=== PATIENT | female | born 1975 | race Caucasian/White ===

== ENCOUNTER 2016-09-21 15:17 | Emergency (ER) | payer MEDICAID, OTHER ==
[2016-09-21 15:34] VITALS: O2SAT 98
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
[2016-09-21 17:58] VITALS: BP 142/80; PULSE 100
[2016-09-21] MEDS ORDERED: TORAdol 30 mg Injection IM ONE ×2 (18:10→18:12)
[2016-09-21] MEDS ORDERED: TORAdol 30 mg Injection ONE (18:16)
--- NOTE | 2016-09-21 22:47 | XRAY ---
Indication: Pain, pressure, and erythema. Status post ORIF surgery. Comparison: None at our institution. AP/crosstable lateral right lower leg demonstrates intact intramedullary jerrica and proximal/distal screws fixating healing comminuted tibial shaft fracture with good apposition/alignment and mild soft tissue swelling. Also minimally displaced fibular shaft fracture with minimal healing. Multiple cutaneous jm attest to recent surgery. Mild ankle degenerative changes. No other bony, articular, or soft tissue abnormalities.
--- NOTE | 2016-09-21 22:50 | XRAY ---
Indication: Pain. Two-dimensional sonogram and color Doppler imaging of the major venous vessels of the right leg was performed. Comparison: None No thrombus seen in the examined deep venous vessels of the right leg including greater saphenous vein. Veins demonstrate normal compressibility. Venous waveforms are normal with and without augmentation. Impression: Right leg negative for DVT. Comment: Preliminary report was given.
== END 2016-09-21 18:33 | disposition home or self-care (01) ==
LOC: ED 15:17
DX: G89.18 Other acute postprocedural pain (principal); M25.561 Pain in right knee; M79.661 Pain in right lower leg
CPT/HCPCS: 73590; 84703; 93971; 96372; 99284; J1885

== ENCOUNTER 2017-05-26 21:41 | Emergency (ER) | payer OTHER ==
[2017-05-26] MEDS ORDERED: THORAZINE 50 MG*** 50 MG in Sodium Chloride 0.9% 100 ML IVPB 100 ML IV ONE (21:49)
[2017-05-26] MEDS ORDERED: THORAZINE 50 MG ONE ×2 (21:52→22:42)
[2017-05-26] MEDS ORDERED: Sodium Chloride 0.9% 1000 ML 1,000 ML ONE (21:52)
[2017-05-26] MEDS ORDERED: Sodium Chloride 0.9% 100 ML IVPB 0 ML IV ONE (21:53)
[2017-05-26] MEDS: THORAZINE 50 MG IM SCH ×2 (21:57→22:44)
[2017-05-26] MEDS ORDERED: Sodium Chloride 0.9% 1000 ML 1,000 ML IV SCH (22:00)
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
[2017-05-26 22:26] LABS: BASOPHIL % 0.4 % (0.0-0.4); Eosinophil % 1.2 % (0.00-5.0); Granulocytes % 69.4 % (36.0-66.0); Mean Cell Volume 83.6 fl (78-100); Mean Platelet Volume 9.9 fl (6-9.5); Platelet Count 451 K/mm3 (150-450); Red Blood Count 4.03 M/mm3 (4.1-5.4); Red Cell Distribution Width 17.6 % (11.5-14.0); White Blood Count 9.8 K/mm3 (4.0-10.5)
[2017-05-26 22:27] LABS: Mean Corpuscular Hemoglobin 26.7 pg (26-32)
[2017-05-26] MEDS ORDERED: THORAZINE 50 MG IM SCH (22:45)
[2017-05-26 22:47] LABS: ALBUMIN 3.6 g/dL (3.4-5.0); ALKALINE PHOSPHATASE 112 U/L (46-116); ANION GAP 14.6 MEQ/L (5-15); BLOOD UREA NITROGEN 8 mg/dL (9-20); CHLORIDE 106 mEq/L (98-107); Carbon Dioxide 24.5 mEq/L (21-32); Glucose 94 MG/DL (70-110); SGOT/AST 20 U/L (15-37); SGPT/ALT 19 U/L (12-78); SODIUM 141 mEq/L (136-145); Total Protein 7.4 gm/dL (6.4-8.2)
[2017-05-26 22:50] LABS: ACETAMINOPHEN < 2.0 ug/ml (10-30); ETHYL ALCOHOL < 0.010 % (0.00-0.01); Potassium 3.8 mEq/L (3.5-5.1)
[2017-05-26 22:55] LABS: Bacteria FEW /HPF (NEGATIVE); Bilirubin NEGATIVE (NEGATIVE); Blood 250 Ery/ul (0-5); COMPLETE URINE MICROSCOPIC? YES; Collection Type VOID; Epithelial Cells MODERATE /HPF (FEW); Glucose NEGATIVE (NEGATIVE); Leukocyte Esterase 1+ (NEGATIVE)
[2017-05-26 22:56] LABS: Trichomonas PRESENT /HPF (NEGATIVE)
[2017-05-26 23:00] LABS: ADD URINE CULTURE? YES (NO)
[2017-05-26] MEDS ORDERED: Flagyl 500 MG PO ONE (23:36)
[2017-05-26] MEDS ORDERED: Flagyl 500 MG ONE (23:38)
[2017-05-27 00:02] VITALS: BP 162/105; PULSE 124; O2SAT 100
--- NOTE | 2017-05-27 08:46 | XRAY ---
Indication: Short of breath. Comparison: None Portable chest moderately underinflated crowding the lung bases. No focal infiltrate, consolidation, or large effusion. Heart is not enlarged. Bony thorax intact. Impression: Nonacute underinflated chest.
== END 2017-05-27 00:06 | disposition home or self-care (01) ==
LOC: ED 21:41
DX: A59.03 Trichomonal cystitis and urethritis (principal); R06.00 Dyspnea, unspecified; F15.90 Other stimulant use, unspecified, uncomplicated
CPT/HCPCS: 36000; 36415; 71010; 80053; 80307; 81000; 82150; 83690; 83735; 83880; 84484; 84703; 85025; 87086; 93005; 96360; 96361; 96372; 99284; G0481; J3230; A9270-GY

== ENCOUNTER 2022-10-12 13:00 | Inpatient (IN) | payer MEDICARE ==
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
[2022-10-12] MEDS ORDERED: MORPHINE SULFATE 4 MG INJ IV ONE ×2 (13:16→15:12)
[2022-10-12] MEDS ORDERED: Zofran 4 MG/2 ML VIAL IV ONE (13:16)
[2022-10-12] MEDS ORDERED: BABY ASPIRIN 81 MG CHEW PO ONE (13:16)
[2022-10-12] MEDS ORDERED: MORPHINE SULFATE 4 MG INJ ONE ×2 (13:19→15:17)
[2022-10-12] MEDS ORDERED: Zofran 4 MG/2 ML VIAL ONE (13:19)
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
[2022-10-12 14:14] LABS: Absolute Neutrophil Ct (ANC) 11.03 x10^3/uL (1.4-6.9); BASOPHIL % 0.6 % (0.0-0.4); Basophil (Absolute #) 0.09 x10^3/uL (0-0.4); Eosinophil % 2.8 % (0.00-5.0); Eosinophil (Absolute #) 0.45 x10^3/uL (0-0.5); Hematocrit 42.9 % (35-47); Hemoglobin 12.6 g/dL (12.0-16.0); IMMATURE GRAN # 0.05 x10^3u/L (0.00-0.03); IMMATURE GRAN % 0.3 % (0.00-0.4); Lymphocyte (Absolute #) 3.12 x10^3/uL (1.0-4.6); Lymphocytes % 19.5 % (24.0-44.0); Mean Cell Volume 87.9 fL (78-100); Mean Corpuscular Hemoglobin 25.8 pg (26-32); Mean Corpuscular Hgb Concent. 29.4 g/dL (32-36); Mean Platelet Volume 9.9 fL (7.5-11.0); Monocyte (Absolute #) 1.24 x10^3/uL (0.0-1.3); Monocytes % 7.8 % (0.0-12.0); Platelet Count 382 x10^3/uL (150-450); Red Blood Count 4.88 x10^6/uL (4.1-5.4); Red Cell Distribution Width 17.3 % (11.5-14.0)
[2022-10-12 14:16] LABS: INFLUENZA A NEGATIVE (NEGATIVE); INFLUENZA B NEGATIVE (NEGATIVE); RESPIRATORY SYNCTIAL VIRUS NEGATIVE (NEGATIVE); SARS-CoV-2 Xpert Express NEGATIVE (NEGATIVE)
[2022-10-12] MEDS ORDERED: ROCEPHIN 1 Gm-D5w 50 ml Bag** 1 G/50 ML IVPB IV STA (14:24)
[2022-10-12] MEDS ORDERED: ROCEPHIN 1 Gm-D5w 50 ml Bag** 1 G/50 ML IVPB IV ONE (14:29)
[2022-10-12 14:39] LABS: ALBUMIN 3.8 g/dL (3.5-5.0); ALKALINE PHOSPHATASE 145 U/L (38-126); ANION GAP 15.7 MEQ/L (5-15); BLOOD UREA NITROGEN 10 mg/dL (7-17); CHLORIDE 107 mmol/L (98-107); Calcium 8.3 mg/dL (8.4-10.2); Carbon Dioxide 19 mmol/L (22-30); Creatinine 1 0.78 mg/dL (0.52-1.04); EST GLOMERULAR FILTRATION RATE > 60.0 ML/MIN; Glucose 110 mg/dL (74-106); NT PRO BNPII 2090 pg/mL (<300); Potassium 4.2 mmol/L (3.5-5.1); SGOT/AST 23 U/L (14-36); SGPT/ALT 17 U/L (0-35); SODIUM 137 mmol/L (137-145); Total Protein 7.2 g/dL (6.3-8.2)
[2022-10-12] MEDS ORDERED: Sodium Chloride 0.9% 500 ML 500 ML IV ONE ×2 (14:54→15:04)
--- NOTE | 2022-10-12 16:20 | XRAY ---
Indication: Right chest pain with inspiration. Multiple contiguous axial images obtained through the chest using 100 cc Isovue 370 contrast and PE protocol. Comparison: None Good opacification of the pulmonary arteries. Small nonoccluding pulmonary emboli in the right main pulmonary artery extending into the main right lower lobe branch and posterior segmental branch. Additional occluding pulmonary emboli in the medial segment of the right lower lobe. Heart not enlarged. Aorta is normal in course and caliber. No pathologic mediastinal/hilar lymphadenopathy. Lungs demonstrates right lower and lesser degree right middle lobe subsegmental atelectasis. Also small focus groundglass airspace disease inferior right upper lobe with small right effusion. Incidental small left costophrenic angle calcified granuloma. Bony thorax intact with minimal degenerative changes throughout the spine. Limited upper abdomen demonstrates cholecystectomy and 1.6 cm hepatic hemangioma adjacent to the gallbladder fossa. Impression: 1. Occluding and nonoccluding pulmonary emboli in right main and right lower lobe pulmonary arteries as detailed. 2. Right middle and right lower lobe subsegmental atelectasis. 3. Right upper lobe groundglass airspace disease with small effusion. 4. Incidental hepatic hemangioma.
[2022-10-12] MEDS ORDERED: ENOXAPARIN SODIUM SQ ONE ×2 (16:39→16:45)
[2022-10-12] MEDS ORDERED: TYLENOL 325 MG PO PRN (17:17)
[2022-10-12] MEDS ORDERED: Zofran 4 MG/2 ML VIAL IV PRN (17:17)
[2022-10-12] MEDS: Sodium Chloride 0.9% 1000 ML 1,000 ML IV SCH (17:48)
[2022-10-12] MEDS: Zithromax 500 MG/ 250 ML NaCl Premix 500 MG/250 ML IVPB IV SCH (17:48)
[2022-10-12 18:26] LABS: INR 0.93 (0.8-3.0); PROTIME 10.2 SECONDS (9.4-12.5)
[2022-10-12] MEDS: SUBLIMAZE 100 MCG/2 ML IV PRN (18:37)
[2022-10-12] MEDS: Advair Hfa 115/21 Common canister IH SCH (19:00)
[2022-10-12] MEDS ORDERED: ENOXAPARIN SODIUM SQ SCH (22:00)
[2022-10-13] MEDS: SUBLIMAZE 100 MCG/2 ML IV PRN ×4 (01:34→18:17)
[2022-10-13] MEDS: NORCO 7.5/325 MG TAB PO PRN ×2 (03:53→23:19)
[2022-10-13 06:14] LABS: Absolute Neutrophil Ct (ANC) 7.61 x10^3/uL (1.4-6.9); BASOPHIL % 0.8 % (0.0-0.4); Basophil (Absolute #) 0.11 x10^3/uL (0-0.4); Hematocrit 37.4 % (35-47); Hemoglobin 11.8 g/dL (12.0-16.0); IMMATURE GRAN # 0.04 x10^3u/L (0.00-0.03); IMMATURE GRAN % 0.3 % (0.00-0.4); Lymphocyte (Absolute #) 3.95 x10^3/uL (1.0-4.6); Lymphocytes % 29.7 % (24.0-44.0); Mean Cell Volume 81.7 fL (78-100); Mean Corpuscular Hemoglobin 25.8 pg (26-32); Mean Corpuscular Hgb Concent. 31.6 g/dL (32-36); Monocyte (Absolute #) 1.18 x10^3/uL (0.0-1.3); Monocytes % 8.9 % (0.0-12.0); Neutrophil % 57.3 % (36.0-66.0); Platelet Count 391 x10^3/uL (150-450); Red Blood Count 4.58 x10^6/uL (4.1-5.4); Red Cell Distribution Width 17.2 % (11.5-14.0); White Blood Count 13.3 x10^3/uL (4.0-10.5)
[2022-10-13 06:48] LABS: ALBUMIN 3.5 g/dL (3.5-5.0); ALKALINE PHOSPHATASE 159 U/L (38-126); ANION GAP 11.8 MEQ/L (5-15); BLOOD UREA NITROGEN 9 mg/dL (7-17); CHLORIDE 109 mmol/L (98-107); Calcium 8.1 mg/dL (8.4-10.2); Carbon Dioxide 21 mmol/L (22-30); Creatinine 1 0.87 mg/dL (0.52-1.04); EST GLOMERULAR FILTRATION RATE > 60.0 ML/MIN; Glucose 99 mg/dL (74-106); NT PRO BNPII 1680 pg/mL (<300); Potassium 4.1 mmol/L (3.5-5.1); SGOT/AST 27 U/L (14-36); SGPT/ALT 20 U/L (0-35); SODIUM 138 mmol/L (137-145); Total Protein 6.7 g/dL (6.3-8.2)
[2022-10-13] MEDS ORDERED: SUBLIMAZE 100 MCG/2 ML ONE (06:59)
[2022-10-13] MEDS: ELIQUIS 2.5 MG TABLET PO SCH ×2 (09:35→21:26)
[2022-10-13] MEDS: ROCEPHIN 1 Gm-D5w 50 ml Bag** 1 G/50 ML IVPB IV SCH (09:36)
[2022-10-13] MEDS: Zithromax 500 MG/ 250 ML NaCl Premix 500 MG/250 ML IVPB IV SCH (09:36)
[2022-10-13] MEDS: Sodium Chloride 0.9% 1000 ML 1,000 ML IV SCH (17:43)
[2022-10-13] MEDS: Advair Hfa 230/21 Mcg COMMON CANISTER IH SCH (18:57)
[2022-10-13] MEDS: Advair Hfa 115/21 Common canister IH SCH (21:25)
[2022-10-14] MEDS: SUBLIMAZE 100 MCG/2 ML IV PRN ×5 (03:14→21:30)
[2022-10-14 05:48] LABS: Hematocrit 36.9 % (35-47); Hemoglobin 11.3 g/dL (12.0-16.0); Mean Cell Volume 83.1 fL (78-100); Mean Corpuscular Hemoglobin 25.5 pg (26-32); Mean Corpuscular Hgb Concent. 30.6 g/dL (32-36); Mean Platelet Volume 9.8 fL (7.5-11.0); Platelet Count 350 x10^3/uL (150-450); Red Blood Count 4.44 x10^6/uL (4.1-5.4); Red Cell Distribution Width 16.8 % (11.5-14.0); White Blood Count 13.2 x10^3/uL (4.0-10.5)
[2022-10-14 06:14] LABS: ANION GAP 14.1 MEQ/L (5-15); BLOOD UREA NITROGEN 8 mg/dL (7-17); CHLORIDE 109 mmol/L (98-107); Carbon Dioxide 18 mmol/L (22-30); Creatinine 1 0.67 mg/dL (0.52-1.04); EST GLOMERULAR FILTRATION RATE > 60.0 ML/MIN; Glucose 94 mg/dL (74-106); Potassium 4.3 mmol/L (3.5-5.1); SODIUM 137 mmol/L (137-145)
[2022-10-14] MEDS: Advair Hfa 230/21 Mcg COMMON CANISTER IH SCH ×2 (07:33→18:40)
[2022-10-14] MEDS: ROCEPHIN 1 Gm-D5w 50 ml Bag** 1 G/50 ML IVPB IV SCH (08:52)
[2022-10-14] MEDS: Zithromax 500 MG/ 250 ML NaCl Premix 500 MG/250 ML IVPB IV SCH (09:04)
[2022-10-14] MEDS: ELIQUIS 2.5 MG TABLET PO SCH ×2 (09:04→21:30)
[2022-10-14] MEDS: NORCO 7.5/325 MG TAB PO PRN ×2 (10:06→14:22)
[2022-10-14] MEDS: Sodium Chloride 0.9% 1000 ML 1,000 ML IV SCH ×2 (10:19→13:37)
[2022-10-14] MEDS: PIPERACILLIN/TAZOBACTAM 3.375 GM in Sodium Chloride 100ML MINI-BAG PLUS 100 ML IV SCH ×2 (11:07→17:22)
--- NOTE | 2022-10-14 12:09 | XRAY ---
CLINICAL HISTORY:Pneumonia, PE; COMPARISON:10/12/2022; TECHNIQUES:Frontal view of the chest; FINDINGS: Compared to prior study, interval progression in right sided pleural effusion and underlying pulmonary air space consolidation. Left lung field is clear. No left pleural effusion. Heart size is normal. Ossesous structures are interval unchanged. IMPRESSION: Interval progression in the disease process on right side manifested by interval progression in right sided pleural effusion and underlying pulmonary air space consolidation. Electronically Signed by: Laura Shore MD. ( 10/14/2022 08:33:48 LEATHER CARVER)
[2022-10-14] MEDS ORDERED: Zofran 4 MG/2 ML VIAL IV PRN (12:45)
[2022-10-15] MEDS: PIPERACILLIN/TAZOBACTAM 3.375 GM in Sodium Chloride 100ML MINI-BAG PLUS 100 ML IV SCH ×5 (00:08→23:55)
[2022-10-15] MEDS: NORCO 7.5/325 MG TAB PO PRN ×4 (00:12→23:54)
[2022-10-15] MEDS: SUBLIMAZE 100 MCG/2 ML IV PRN ×3 (03:11→19:13)
[2022-10-15 05:05] LABS: Hematocrit 38.2 % (35-47); Hemoglobin 11.9 g/dL (12.0-16.0); Mean Cell Volume 83.2 fL (78-100); Mean Corpuscular Hemoglobin 25.9 pg (26-32); Mean Corpuscular Hgb Concent. 31.2 g/dL (32-36); Mean Platelet Volume 9.9 fL (7.5-11.0); Platelet Count 392 x10^3/uL (150-450); Red Blood Count 4.59 x10^6/uL (4.1-5.4); Red Cell Distribution Width 17.5 % (11.5-14.0)
[2022-10-15 05:15] LABS: BLOOD UREA NITROGEN 12 mg/dL (7-17); CHLORIDE 108 mmol/L (98-107); Carbon Dioxide 21 mmol/L (22-30); Creatinine 1 0.72 mg/dL (0.52-1.04); EST GLOMERULAR FILTRATION RATE > 60.0 ML/MIN; Glucose 93 mg/dL (74-106); Potassium 4.4 mmol/L (3.5-5.1); SODIUM 138 mmol/L (137-145)
[2022-10-15] MEDS: Advair Hfa 230/21 Mcg COMMON CANISTER IH SCH ×2 (07:12→19:12)
--- NOTE | 2022-10-15 08:41 | XRAY ---
Indication: Pulmonary embolus. Pneumonia. Comparison: One day earlier Portable chest again demonstrates moderate right mid to lower lung infiltrate/atelectasis/effusion mildly improved. Remaining heart and left lung unremarkable.
[2022-10-15] MEDS: Sodium Chloride 0.9% 1000 ML 1,000 ML IV SCH (10:44)
[2022-10-15] MEDS: ELIQUIS 2.5 MG TABLET PO SCH ×2 (10:45→21:15)
--- NOTE | 2022-10-15 13:31 | PCM.NOTE ---
Date and Time: 10/15/22 1331 OBJECTIVE DATA Vital Signs: Vital Signs - 24 hr Temp Pulse Resp BP Pulse Ox 10/15/22 12:00 97.0 F 94 H 20 157/98 94 L 10/15/22 07:15 90 18 96 10/15/22 07:07 97.0 F 92 H 21 141/95 95 10/15/22 04:00 97.8 F 85 20 181/84 97 10/14/22 23:38 97.0 F 93 H 21 132/80 95 10/14/22 18:58 97.5 F 89 18 114/69 98 10/14/22 18:40 88 18 98 10/14/22 15:44 96.2 F 81 16 132/75 96 Pain Assessment - Last Documented Pain Intensity 3 Pain Scale Used 0-10 Pain Scale Intake and Output: Intake & Output 10/13/22 10/14/22 10/15/22 10/16/22 11:59 11:59 11:59 11:59 Intake Total 1945 2098 1020 Output Total 300 550 Balance 1645 1548 1020 Weight 124.8 kg 126.1 kg 127.2 kg Lab Results: Lab Results-Last 24 Hours 10/15/22 10/15/22 Range/Units 04:51 04:51 WBC 15.0 H (4.0-10.5) x10^3/uL RBC 4.59 (4.1-5.4) x10^6/uL Hgb 11.9 L (12.0-16.0) g/dL Hct 38.2 (35-47) % MCV 83.2 (78-100) fL MCH 25.9 L (26-32) pg MCHC 31.2 L (32-36) g/dL RDW 17.5 H (11.5-14.0) % Plt Count 392 (150-450) x10^3/uL MPV 9.9 (7.5-11.0) fL Sodium 138 (137-145) mmol/L Potassium 4.4 (3.5-5.1) mmol/L Chloride 108 H (98-107) mmol/L Carbon Dioxide 21 L (22-30) mmol/L Anion Gap 13.0 (5-15) MEQ/L BUN 12 (7-17) mg/dL Creatinine 0.72 (0.52-1.04) mg/dL Estimated GFR > 60.0 ML/MIN Glucose 93 (74-106) mg/dL Calcium 8.0 L (8.4-10.2) mg/dL Radiology Exams: Radiology Procedures Category Date Time Status CHEST 1 VIEW (PORTABLE) DAILY Exams 10/14/22 09:00 Completed CHEST 1 VIEW (PORTABLE) Routine Exams 10/15/22 08:00 Completed ECHO W/2D AND DOPPLER [US] Routine Exams 10/15/22 07:00 Taken Multi-Disciplinary Progress Notes: Multi-Disciplinary Progress Notes 10/15/22 08:34 Respiratory Note by Sangeetha Walter PT'S O2 SAT ON ROOM AIR WHILE SLEEPING WAS 83-86%. PT PLACED BACK ON 2LPM VIA NASAL CANNULA. O2 SAT INCREASED TO 94%. Initialized on 10/15/22 08:34 - END OF NOTE
[2022-10-16] MEDS: SUBLIMAZE 100 MCG/2 ML IV PRN ×3 (03:16→19:52)
[2022-10-16] MEDS: PIPERACILLIN/TAZOBACTAM 3.375 GM in Sodium Chloride 100ML MINI-BAG PLUS 100 ML IV SCH ×3 (05:23→17:13)
[2022-10-16] MEDS: Sodium Chloride 0.9% 1000 ML 1,000 ML IV SCH (06:18)
[2022-10-16 07:12] LABS: Hematocrit 41.5 % (35-47); Hemoglobin 12.5 g/dL (12.0-16.0); Mean Cell Volume 85.4 fL (78-100); Mean Corpuscular Hemoglobin 25.7 pg (26-32); Mean Corpuscular Hgb Concent. 30.1 g/dL (32-36); Mean Platelet Volume 10.4 fL (7.5-11.0); Platelet Count 430 x10^3/uL (150-450); Red Blood Count 4.86 x10^6/uL (4.1-5.4); Red Cell Distribution Width 17.1 % (11.5-14.0); White Blood Count 12.9 x10^3/uL (4.0-10.5)
[2022-10-16] MEDS: Advair Hfa 230/21 Mcg COMMON CANISTER IH SCH ×2 (07:35→19:34)
[2022-10-16] MEDS: ELIQUIS 2.5 MG TABLET PO SCH ×2 (11:19→20:55)
[2022-10-16] MEDS: NORCO 7.5/325 MG TAB PO PRN (11:19)
--- NOTE | 2022-10-16 13:56 | ECHO ---
DATE OF PROCEDURE: 10/15/2022 CLINICAL INFORMATION: Pulmonary emboli. The M-mode 2D, and Doppler echocardiogram including color flow Doppler shows the left ventricle is normal in size. There is no thrombus present. There is mild concentric left ventricular hypertrophy. There is normal contractility of the left ventricle. The ejection fraction is calculated to be 80%. The right ventricle is dilated. The right ventricular systolic function is significantly decreased. The aortic valve opens well. It is trileaflet. There is no aortic regurgitation. There is mitral valve leaflet thickening. There is moderate tricuspid regurgitation. The right ventricular systolic pressure is calculated to be 77 mm of [place]. The pulmonic valve is not well visualized. There is moderate pulmonic regurgitation. The aortic root is normal. There is no pericardial effusion present. IMPRESSION: 1) SEVERE PULMONARY HYPERTENSION. 2) MODERATE TRICUSPID REGURGITATION. 3) MODERATE PULMONIC REGURGITATION. 4) RIGHT VENTRICULAR DILATATION. 5) RIGHT VENTRICULAR SYSTOLIC DYSFUNCTION. 6) MODERATE PULMONIC REGURGITATION. 7) POSSIBLE IMPAIRED LEFT VENTRICULAR RELAXATION. 8) MILD LEFT VENTRICULAR HYPERTROPHY.
[2022-10-16 20:02] VITALS: BP 156/91; PULSE 71; O2SAT 98
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
--- NOTE | 2022-10-21 17:14 | PCM.DS ---
Discharge Summary Date of Admission: 10/12/22 17:10 Date of Discharge: 10/16/2022 Admitting Physician: ANNEMARIE ESTRADA Consults: Consults on Case 10/16/22 11:47 Consult Cardiology ROUTINE Primary Care Provider: IMTIAZ SCHULTZ Allergies Allergies latex Allergy (Verified 10/12/22 13:21) povidone-iodine [From Betadine] Allergy (Verified 10/12/22 13:21) soap [From Betadine] Allergy (Verified 10/12/22 13:21) Hospital Summary - Hospital Course Hospital Course: Pt. admitted for iv antibiotics and anticoagulation, pt. was improving but abruptly decided she needed to leave for social issues, pt. 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 - Vitals & Intake/Output Vital Signs: Vital Signs Temperature 96.6 F 10/16/22 20:00 Pulse Rate 71 10/16/22 20:00 Respiratory Rate 26 H 10/16/22 20:00 Blood Pressure 156/91 10/16/22 20:00 O2 Sat by Pulse Oximetry 98 10/16/22 20:00 - Lab Result Diagrams: 10/16/22 07:00 10/15/22 04:51 Micro Results-Entire Visit: Microbiology 10/12/22 14:02 Blood Culture - Final Blood NO GROWTH 10/12/22 13:30 Blood Culture - Final Blood NO GROWTH - Procedures and Test Procedures and Tests throughout Hospitalization: Therapy Orders & Screens 10/12/22 17:17 EKG REPEAT IN AM Comment: Respiratory Therapy Consult ROUTINE Comment: Reason For Exam: 10/12/22 17:46 Oxygen Nasal Cannula 2 lpm Comment: Respiratory Therapy Assessment DAILY Comment: 10/12/22 18:56 Respiratory MDI BID Comment: Diagnosis: Pulmonary embolism 10/13/22 08:57 Respiratory Therapy Assessment DAILY Comment: wean O2 as tolerated Diagnosis: Pulmonary embolism 10/13/22 19:27 Respiratory MDI BID Comment: Diagnosis: Pulmonary embolism Discharge Exam General Appearance: no apparent distress, alert Neurologic Exam: alert, oriented x 3, cooperative, normal mood/affect, nml cerebellar function, sensation nml, No motor deficits Eye Exam: PERRL, EOMI, eyes nml inspection Ears, Nose, Throat Exam: normal ENT inspection, pharynx normal, moist mucous membranes Neck Exam: normal inspection, non-tender, supple, full range of motion Respiratory Exam: normal breath sounds, lungs clear, No respiratory distress Cardiovascular Exam: regular rate/rhythm, normal heart sounds Gastrointestinal/Abdomen Exam: soft, No tenderness, No mass Pelvic Exam: deferred Rectal Exam: deferred Back Exam: normal inspection, normal range of motion, No CVA tenderness, No vertebral tenderness Extremity Exam: normal inspection, normal range of motion Skin Exam: normal color, warm, dry Final Diagnosis/Problem List - Final Discharge Diagnosis/Problem (1) Pulmonary emboli Status: Acute Code(s): I26.99 - OTHER PULMONARY EMBOLISM WITHOUT ACUTE COR PULMONALE (2) Right pulmonary infiltrate on CXR Status: Acute Code(s): R91.8 - OTHER NONSPECIFIC ABNORMAL FINDING OF LUNG FIELD - Discharge Discharge Date: 10/16/22 Disposition: Against Medical Advice Condition: Stable Prescriptions: No Action Non-Formulary Drug [Non-Formulary Bulk Item] 0 each IH DAILY Follow up with: IMTIAZ SCHULTZ [Primary Care Provider] -
== END 2022-10-16 21:00 | disposition left against medical advice (07) | DRG 176 ==
LOC: ED 13:00 → MED SURG 17:10 → UNDOADMOB 17:10 → OBSVTOIN 17:10 → INTOOBSV 10-14 09:52 → OBSVTOIN 10-14 09:52
PROVIDERS: ADMIT Family Medicine; ATTEND Family Medicine
DX: I26.99 Other pulmonary embolism without acute cor pulmonale (principal); R91.8 Other nonspecific abnormal finding of lung field; Z72.0 Tobacco use; Z79.899 Other long term (current) drug therapy
CPT/HCPCS: 0241U; 36000; 36415; 71045; 71046; 71260; 80048; 80053; 82947; 83880; 84484; 85025; 85027; 85379; 85610; 87040; 93005; 93041; 93268; 93306; 94640; 94760; 94762; 96365; 96372; 96374; 96375; 96376; 99285; 99291; G0378; J0456; J0696; J1650; J2270; J2405; J3010; A9270-GY

== ENCOUNTER 2023-06-22 05:29 | Observation (INO) | payer MEDICARE ==
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
[2023-06-22] MEDS ORDERED: DUONEB 0.5-3 MG/3 ml Neb IH ONE ×2 (06:39→07:35)
[2023-06-22] MEDS ORDERED: Sodium Chloride 0.9% 500 ML 500 ML IV SCH (07:15)
[2023-06-22 07:19] LABS: ALBUMIN 3.7 g/dL (3.5-5.0); ANION GAP 13.8 MEQ/L (5-15); Calcium 8.5 mg/dL (8.4-10.2); Creatinine 1 0.76 mg/dL (0.52-1.04); EST GLOMERULAR FILTRATION RATE 97.2 ML/MIN; MAGNESIUM 2.1 mg/dL (1.6-2.3); Potassium 4.4 mmol/L (3.5-5.1); Total Protein 7.3 g/dL (6.3-8.2)
--- NOTE | 2023-06-22 07:20 | XRAY ---
Indication: Cough and short of breath. Right chest pain. Comparison: October 15, 2022 Portable chest demonstrates clearing previous right lung pleural parenchymal opacities. Minimal residual versus recurrent right base infiltrate/atelectasis. Remaining heart, left lung, and bony thorax unremarkable.
[2023-06-22 07:31] LABS: TROPONIN < 0.012 ng/mL (0.000-0.034)
[2023-06-22 07:37] LABS: NT PRO BNPII 1790 pg/mL (<300)
[2023-06-22] MEDS ORDERED: Sodium Chloride 0.9% 1000 ML 1,000 ML ONE (07:42)
[2023-06-22 07:43] LABS: INFLUENZA A NEGATIVE (NEGATIVE); INFLUENZA B NEGATIVE (NEGATIVE); RESPIRATORY SYNCTIAL VIRUS NEGATIVE (NEGATIVE); SARS-CoV-2 Xpert Express NEGATIVE (NEGATIVE)
[2023-06-22] MEDS ORDERED: ROCEPHIN 1 Gm-D5w 50 ml Bag** 1 G/50 ML IVPB IV STA (07:43)
[2023-06-22] MEDS ORDERED: Rocephin 1000 MG INJ IM ONE (08:07)
[2023-06-22] MEDS ORDERED: XYLOCAINE 1% HCL 20 ML MDV ONE (08:10)
[2023-06-22] MEDS ORDERED: Rocephin 1000 MG INJ ONE (08:10)
[2023-06-22 08:59] LABS: Absolute Neutrophil Ct (ANC) 8.83 x10^3/uL (1.4-6.9); BASOPHIL % 0.5 % (0.0-0.4); Basophil (Absolute #) 0.08 x10^3/uL (0-0.4); Eosinophil % 1.1 % (0.00-5.0); Eosinophil (Absolute #) 0.16 x10^3/uL (0-0.5); Hematocrit 39.9 % (35-47); Hemoglobin 12.3 g/dL (12.0-16.0); IMMATURE GRAN # 0.05 x10^3u/L (0.00-0.03); IMMATURE GRAN % 0.3 % (0.00-0.4); Lymphocyte (Absolute #) 4.65 x10^3/uL (1.0-4.6); Lymphocytes % 30.9 % (24.0-44.0); Mean Cell Volume 77.6 fL (78-100); Mean Corpuscular Hemoglobin 23.9 pg (26-32); Mean Corpuscular Hgb Concent. 30.8 g/dL (32-36); Mean Platelet Volume 9.1 fL (7.5-11.0); Monocyte (Absolute #) 1.26 x10^3/uL (0.0-1.3); Monocytes % 8.4 % (0.0-12.0); NUCLEATED RBC # 0.04 x10^3u/L (0.00-0.01); NUCLEATED RBC % 0.3 % (0.00-0.1); Neutrophil % 58.8 % (36.0-66.0); Platelet Count 364 x10^3/uL (150-450); Red Blood Count 5.14 x10^6/uL (4.1-5.4); Red Cell Distribution Width 20.7 % (11.5-14.0)
[2023-06-22] MEDS ORDERED: MORPHINE SULFATE 4 MG INJ IM ONE (09:05)
[2023-06-22] MEDS ORDERED: TRANDATE 20 MG/4 ML SYRINGE IV ONE ×2 (09:10→11:48)
[2023-06-22] MEDS ORDERED: MORPHINE SULFATE 4 MG INJ ONE (09:15)
[2023-06-22] MEDS ORDERED: ENOXAPARIN SODIUM SQ ONE ×4 (09:45→22:00)
[2023-06-22] MEDS ORDERED: Sodium Chloride 0.9% 1000 ML 1,000 ML IV SCH (10:45)
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
--- NOTE | 2023-06-22 12:36 | XRAY ---
CLINICAL HISTORY:Right lower chest pain, cough COMPARISON:Dated 04/04/2023. TECHNIQUE:Contiguous axial CT images of the chest were acquired with the administration of intravenous contrast. Coronal and sagittal reconstructions were obtained. FINDINGS: Right lower lobe lobar and segmental pulmonary artery thromboembolism is noted. There is associating right lower lobe posterior segment parenchymal consolidation possibly due to infarct. The main pulmonary artery, intrahepatic cava and intrahepatic hepatic veins are prominent in size. Patchy air space shadowing is seen in the right lower lobe. Mild to moderate right-sided pleural effusion was seen. Ground glass haze was seen in both lungs. 6.3mm soft tissue density / solid nodule seen in left lower lobe. CT at 6-12 months is advised according to The Fleischner Society pulmonary nodule recommendations. Heart size is normal, and there is no pericardial effusion. No pathologically enlarged mediastinal, hilar or axillary lymph node was identified. There is no definite mass lesion in the chest wall. Multiple tiny calcific foci seen in the spleen are likely benign. Status post cholecystectomy. The rest of the scanned upper abdomen is unremarkable. Mild degenerative changes were seen in the visualized spine. IMPRESSION: 1. Right lower lobe possibly acute thromboembolism. 2. Patchy air space shadowing is seen in the right lower lobe possibly due to infarct.. 3. Mild to moderate right-sided pleural effusion was seen. 4. 6.3mm soft tissue density / solid nodule seen in left lower lobe. CT at 6-12 months is advised according to The Fleischner Society pulmonary nodule recommendations. [facility] was called at 11:26 AM CEREAL CHEMIST, 06/22/2023 on [phone] and findings were verbally communicated to Cornell Gudino. Electronically Signed by: Laura Shore MD. (06/22/2023 12:31:22 EST)
[2023-06-22] MEDS ORDERED: TYLENOL 325 MG PO PRN (13:06)
[2023-06-22] MEDS ORDERED: Nicoderm CQ 21 MG TOP SCH (13:15)
[2023-06-22] MEDS: Sodium Bicarbonate 50 MEQ/50 ML VIAL*** 150 MEQ in Dextrose 5%/Water IV Soln. 1000 ML 8... IV SCH ×2 (13:34→21:48)
[2023-06-22 14:50] LABS: TROPONIN < 0.012 ng/mL (0.000-0.034)
[2023-06-22] MEDS ORDERED: NORCO 5/325 MG PO PRN (15:26)
[2023-06-22] MEDS: MORPHINE SULFATE 2 MG INJ IV PRN ×2 (15:50→20:06)
[2023-06-22] MEDS: Zithromax 500 MG/ 250 ML NaCl Premix 500 MG/250 ML IVPB IV SCH (16:29)
[2023-06-22] MEDS ORDERED: Compazine 10 MG/2 ML IV PRN (17:16)
[2023-06-22 20:49] LABS: ADD URINE CULTURE? YES (NO); Appearance Cloudy (Clear); Bacteria Moderate /HPF (None Seen); Bilirubin Small (Negative); Blood Large (Negative); Epithelial Cells Moderate /HPF (None Seen); Glucose, Urine Negative (Negative); Hyaline Casts NONE SEEN /LPF (0-2); Ketones Negative (Negative); Leukocyte Esterase Small (Negative); Nitrite Negative (Negative); Ph 5.5 (4.6-8.0); Protein,Urine Dip 100 (Negative); RBC 21-50 /HPF (0-5); Specific Gravity >=1.030 (1.005-1.030); WBC 21-50 /HPF (0-5)
[2023-06-22] MEDS ORDERED: VENTOLIN COMMON CANISTER IH PRN (21:13)
[2023-06-23] MEDS: Sodium Bicarbonate 50 MEQ/50 ML VIAL*** 150 MEQ in Dextrose 5%/Water IV Soln. 1000 ML 8... IV SCH (04:16)
--- NOTE | 2023-06-23 05:21 | PCM.NOTE ---
Date and Time: 06/23/23 0519 Subjective Assessment: is a 48 year old female with a pmhx of HTN, PE (Eliquis d/cd in March 2023), every day smoker, and chronic back pain who presented to ED 06/22/23 with complaints of shortness of breath, right pleuritic pain with inspiration, dry cough, and light headedness for the past two days. Patient states current symptoms are similar to when she was diagnosed with a PE in September of 2022. She received 6 months of anti-coagulation which was discontinued in March 2023. On presentation patient was tachycardic, tachypneic, and hypertensive. CXR demonstrates right lung pleural parenchymal opacities. Minimal residual versus recurrent right base infiltrate/atelectasis. CT chest showing RLL PE, patchy air space shadowing possibly due to infact in the right lower lobe, mild to moderate right sided pleural effusion. 6.3mm soft tissue density/solid nodule EKG showing Sinus tachycardia, LAFB, no acute ischemic changes. Lab findings remarkable for leukocytosis with WBC at 15.0, DDimer elevated at 1.16, carbon dioxide at 15, and alk phos at 203, BNP at 1790. Respiratory panel negative. Patient given Ceftriaxone, lovenox, morphine, and duoneb. Plan for therapeutic lovenox tonight, then start on Eliquis tomorrow at 10mg bid dosing for 7 days, then Eliquis 5mg bid dosing thereafter. Patient advised she may have to be on long- term anticoagulation, advised follow up with hem/onc, as well as pulmonology. Will continue on the ceftriaxone as well as zithromax for now. 06/23: OBJECTIVE DATA Vital Signs: Vital Signs - 24 hr Temp Pulse Resp BP BP BP Pulse Ox 06/22/23 23:28 96.9 F 84 22 144/102 96 06/22/23 20:06 91 H 20 94 L 06/22/23 19:53 96.8 F 84 17 136/88 95 06/22/23 17:26 96.3 F 88 21 116/87 96 06/22/23 16:00 97.6 F 77 20 136/85 99 06/22/23 15:50 77 132/89 06/22/23 13:40 77 18 99 06/22/23 12:48 97.6 F 77 18 96/64 87 L 06/22/23 11:55 82 18 124/89 97 06/22/23 11:54 85 18 124/89 96 06/22/23 11:46 88 17 153/116 96 06/22/23 11:30 98 H 17 157/106 95 06/22/23 11:24 98 H 17 155/107 99 06/22/23 10:30 168/109 06/22/23 10:00 95 H 19 172/111 06/22/23 09:30 99 H 14 157/113 100 06/22/23 09:06 96 H 16 163/115 06/22/23 09:05 97 H 23 100 06/22/23 09:01 94 H 16 100 06/22/23 08:34 99 H 16 99 06/22/23 08:30 94 H 18 146/112 06/22/23 08:00 102 H 18 171/124 06/22/23 07:30 110 H 21 179/117 99 06/22/23 07:27 101 H 22 148/122 06/22/23 07:11 100 H 32 H 182/131 98 06/22/23 07:10 100 H 25 H 97 06/22/23 07:00 100 H 17 98 06/22/23 06:58 98 06/22/23 06:50 98 H 16 98 06/22/23 06:45 104 H 25 H 96 06/22/23 06:40 104 H 25 H 2 L 06/22/23 06:30 103 H 33 H 96 06/22/23 06:28 98 06/22/23 06:20 102 H 30 H 94 L 06/22/23 06:10 105 H 25 H 95 06/22/23 06:01 101 H 23 158/100 98 06/22/23 05:33 32 H 99 06/22/23 05:32 102 H 32 H 160/108 96 06/22/23 05:31 97.2 F 102 H 32 H 160/108 98 Pain Assessment - Last Documented Pain Intensity 0 Pain Scale Used 0-10 Pain Scale Intake and Output: Intake & Output 06/20/23 06/21/23 06/22/23 06/23/23 11:59 11:59 11:59 11:59 Intake Total 2084 Balance 2084 Weight 132 kg 132 kg Lab Results: Lab Results-Last 24 Hours 06/22/23 06/22/23 06/22/23 Range/Units 06:50 07:00 07:00 WBC (4.0-10.5) x10^3/uL RBC (4.1-5.4) x10^6/uL Hgb (12.0-16.0) g/dL Hct (35-47) % MCV (78-100) fL MCH (26-32) pg MCHC (32-36) g/dL RDW (11.5-14.0) % Plt Count (150-450) x10^3/uL MPV (7.5-11.0) fL Gran % (36.0-66.0) % Immature Gran % (Auto) (0.00-0.4) % Nucleat RBC Rel Count (0.00-0.1) % Eos # (Auto) (0-0.5) x10^3/uL Immature Gran # (Auto) (0.00-0.03) x10^3u/L Absolute Lymphs (auto) (1.0-4.6) x10^3/uL Absolute Monos (auto) (0.0-1.3) x10^3/uL Absolute Nucleated RBC (0.00-0.01) x10^3u/L Lymphocytes % (24.0-44.0) % Monocytes % (0.0-12.0) % Eosinophils % (0.00-5.0) % Basophils % (0.0-0.4) % Absolute Granulocytes (1.4-6.9) x10^3/uL Basophils # (0-0.4) x10^3/uL D-Dimer (0.0-0.50) mg/L Sodium 136 L (137-145) mmol/L Potassium 4.4 (3.5-5.1) mmol/L Chloride 112 H (98-107) mmol/L Carbon Dioxide 15 L* (22-30) mmol/L Anion Gap 13.8 (5-15) MEQ/L BUN 13 (7-17) mg/dL Creatinine 0.76 (0.52-1.04) mg/dL Estimated GFR 97.2 ML/MIN Glucose 93 (74-106) mg/dL POC Glucometer (74 to 106) mg/dL Hemoglobin A1c (4.5-6.0) % Lactic Acid (0.4-2.0) Calcium 8.5 (8.4-10.2) mg/dL Magnesium 2.1 (1.6-2.3) mg/dL Total Bilirubin 1.00 (0.2-1.3) mg/dL AST 30 (14-36) U/L ALT 17 (0-35) U/L Alkaline Phosphatase 203 H (38-126) U/L Troponin I < 0.012 (0.000-0.034) ng/mL NT-Pro-B Natriuret Pep 1790 (<300) pg/mL Serum Total Protein 7.3 (6.3-8.2) g/dL Albumin 3.7 (3.5-5.0) g/dL Procalcitonin (0.030-0.080) ng/mL Urine Color (Yellow) Urine Appearance (Clear) Urine pH (4.6-8.0) Ur Specific [place] (1.005-1.030) Urine Protein (Negative) Urine Glucose (UA) (Negative) mg/dL Urine Ketones (Negative) Urine Blood (Negative) Urine Nitrite (Negative) Urine Bilirubin (Negative) Urine Urobilinogen (0.2) mg/dL Ur Leukocyte Esterase (Negative) U Hyaline Cast (Auto) (0-2) /LPF Urine Microscopic RBC (0-5) /HPF Urine Microscopic WBC (0-5) /HPF Ur Epithelial Cells (None Seen) /HPF Urine Bacteria (None Seen) /HPF Urine Culture Reflexed (NO) Influenza Type A Ag NEGATIVE (NEGATIVE) Influenza Type B Ag NEGATIVE (NEGATIVE) RSV (PCR) NEGATIVE (NEGATIVE) SARS-CoV-2 (PCR) NEGATIVE (NEGATIVE) 06/22/23 06/22/23 06/22/23 Range/Units 08:45 08:45 10:40 WBC 15.0 H (4.0-10.5) x10^3/uL RBC 5.14 (4.1-5.4) x10^6/uL Hgb 12.3 (12.0-16.0) g/dL Hct 39.9 (35-47) % MCV 77.6 L (78-100) fL MCH 23.9 L (26-32) pg MCHC 30.8 L (32-36) g/dL RDW 20.7 H (11.5-14.0) % Plt Count 364 (150-450) x10^3/uL MPV 9.1 (7.5-11.0) fL Gran % 58.8 (36.0-66.0) % Immature Gran % (Auto) 0.3 (0.00-0.4) % Nucleat RBC Rel Count 0.3 H (0.00-0.1) % Eos # (Auto) 0.16 (0-0.5) x10^3/uL Immature Gran # (Auto) 0.05 H (0.00-0.03) x10^3u/L Absolute Lymphs (auto) 4.65 H (1.0-4.6) x10^3/uL Absolute Monos (auto) 1.26 (0.0-1.3) x10^3/uL Absolute Nucleated RBC 0.04 H (0.00-0.01) x10^3u/L Lymphocytes % 30.9 (24.0-44.0) % Monocytes % 8.4 (0.0-12.0) % Eosinophils % 1.1 (0.00-5.0) % Basophils % 0.5 (0.0-0.4) % Absolute Granulocytes 8.83 H (1.4-6.9) x10^3/uL Basophils # 0.08 (0-0.4) x10^3/uL D-Dimer 1.16 H* (0.0-0.50) mg/L Sodium (137-145) mmol/L Potassium (3.5-5.1) mmol/L Chloride (98-107) mmol/L Carbon Dioxide (22-30) mmol/L Anion Gap (5-15) MEQ/L BUN (7-17) mg/dL Creatinine (0.52-1.04) mg/dL Estimated GFR ML/MIN Glucose (74-106) mg/dL POC Glucometer (74 to 106) mg/dL Hemoglobin A1c (4.5-6.0) % Lactic Acid (0.4-2.0) Calcium (8.4-10.2) mg/dL Magnesium (1.6-2.3) mg/dL Total Bilirubin (0.2-1.3) mg/dL AST (14-36) U/L ALT (0-35) U/L Alkaline Phosphatase (38-126) U/L Troponin I < 0.012 (0.000-0.034) ng/mL NT-Pro-B Natriuret Pep (<300) pg/mL Serum Total Protein (6.3-8.2) g/dL Albumin (3.5-5.0) g/dL Procalcitonin (0.030-0.080) ng/mL Urine Color (Yellow) Urine Appearance (Clear) Urine pH (4.6-8.0) Ur Specific [place] (1.005-1.030) Urine Protein (Negative) Urine Glucose (UA) (Negative) mg/dL Urine Ketones (Negative) Urine Blood (Negative) Urine Nitrite (Negative) Urine Bilirubin (Negative) Urine Urobilinogen (0.2) mg/dL Ur Leukocyte Esterase (Negative) U Hyaline Cast (Auto) (0-2) /LPF Urine Microscopic RBC (0-5) /HPF Urine Microscopic WBC (0-5) /HPF Ur Epithelial Cells (None Seen) /HPF Urine Bacteria (None Seen) /HPF Urine Culture Reflexed (NO) Influenza Type A Ag (NEGATIVE) Influenza Type B Ag (NEGATIVE) RSV (PCR) (NEGATIVE) SARS-CoV-2 (PCR) (NEGATIVE) 06/22/23 06/22/23 06/22/23 Range/Units 13:25 14:15 16:00 WBC (4.0-10.5) x10^3/uL RBC (4.1-5.4) x10^6/uL Hgb (12.0-16.0) g/dL Hct (35-47) % MCV (78-100) fL MCH (26-32) pg MCHC (32-36) g/dL RDW (11.5-14.0) % Plt Count (150-450) x10^3/uL MPV (7.5-11.0) fL Gran % (36.0-66.0) % Immature Gran % (Auto) (0.00-0.4) % Nucleat RBC Rel Count (0.00-0.1) % Eos # (Auto) (0-0.5) x10^3/uL Immature Gran # (Auto) (0.00-0.03) x10^3u/L Absolute Lymphs (auto) (1.0-4.6) x10^3/uL Absolute Monos (auto) (0.0-1.3) x10^3/uL Absolute Nucleated RBC (0.00-0.01) x10^3u/L Lymphocytes % (24.0-44.0) % Monocytes % (0.0-12.0) % Eosinophils % (0.00-5.0) % Basophils % (0.0-0.4) % Absolute Granulocytes (1.4-6.9) x10^3/uL Basophils # (0-0.4) x10^3/uL D-Dimer (0.0-0.50) mg/L Sodium (137-145) mmol/L Potassium (3.5-5.1) mmol/L Chloride (98-107) mmol/L Carbon Dioxide (22-30) mmol/L Anion Gap (5-15) MEQ/L BUN (7-17) mg/dL Creatinine (0.52-1.04) mg/dL Estimated GFR ML/MIN Glucose (74-106) mg/dL POC Glucometer (74 to 106) mg/dL Hemoglobin A1c 6.22 H (4.5-6.0) % Lactic Acid 1.8 (0.4-2.0) Calcium (8.4-10.2) mg/dL Magnesium (1.6-2.3) mg/dL Total Bilirubin (0.2-1.3) mg/dL AST (14-36) U/L ALT (0-35) U/L Alkaline Phosphatase (38-126) U/L Troponin I < 0.012 (0.000-0.034) ng/mL NT-Pro-B Natriuret Pep (<300) pg/mL Serum Total Protein (6.3-8.2) g/dL Albumin (3.5-5.0) g/dL Procalcitonin 0.080 (0.030-0.080) ng/mL Urine Color (Yellow) Urine Appearance (Clear) Urine pH (4.6-8.0) Ur Specific [place] (1.005-1.030) Urine Protein (Negative) Urine Glucose (UA) (Negative) mg/dL Urine Ketones (Negative) Urine Blood (Negative) Urine Nitrite (Negative) Urine Bilirubin (Negative) Urine Urobilinogen (0.2) mg/dL Ur Leukocyte Esterase (Negative) U Hyaline Cast (Auto) (0-2) /LPF Urine Microscopic RBC (0-5) /HPF Urine Microscopic WBC (0-5) /HPF Ur Epithelial Cells (None Seen) /HPF Urine Bacteria (None Seen) /HPF Urine Culture Reflexed (NO) Influenza Type A Ag (NEGATIVE) Influenza Type B Ag (NEGATIVE) RSV (PCR) (NEGATIVE) SARS-CoV-2 (PCR) (NEGATIVE) 06/22/23 06/22/23 06/22/23 Range/Units 16:52 20:15 21:17 WBC (4.0-10.5) x10^3/uL RBC (4.1-5.4) x10^6/uL Hgb (12.0-16.0) g/dL Hct (35-47) % MCV (78-100) fL MCH (26-32) pg MCHC (32-36) g/dL RDW (11.5-14.0) % Plt Count (150-450) x10^3/uL MPV (7.5-11.0) fL Gran % (36.0-66.0) % Immature Gran % (Auto) (0.00-0.4) % Nucleat RBC Rel Count (0.00-0.1) % Eos # (Auto) (0-0.5) x10^3/uL Immature Gran # (Auto) (0.00-0.03) x10^3u/L Absolute Lymphs (auto) (1.0-4.6) x10^3/uL Absolute Monos (auto) (0.0-1.3) x10^3/uL Absolute Nucleated RBC (0.00-0.01) x10^3u/L Lymphocytes % (24.0-44.0) % Monocytes % (0.0-12.0) % Eosinophils % (0.00-5.0) % Basophils % (0.0-0.4) % Absolute Granulocytes (1.4-6.9) x10^3/uL Basophils # (0-0.4) x10^3/uL D-Dimer (0.0-0.50) mg/L Sodium (137-145) mmol/L Potassium (3.5-5.1) mmol/L Chloride (98-107) mmol/L Carbon Dioxide (22-30) mmol/L Anion Gap (5-15) MEQ/L BUN (7-17) mg/dL Creatinine (0.52-1.04) mg/dL Estimated GFR ML/MIN Glucose (74-106) mg/dL POC Glucometer 127 H 102 (74 to 106) mg/dL Hemoglobin A1c (4.5-6.0) % Lactic Acid (0.4-2.0) Calcium (8.4-10.2) mg/dL Magnesium (1.6-2.3) mg/dL Total Bilirubin (0.2-1.3) mg/dL AST (14-36) U/L ALT (0-35) U/L Alkaline Phosphatase (38-126) U/L Troponin I (0.000-0.034) ng/mL NT-Pro-B Natriuret Pep (<300) pg/mL Serum Total Protein (6.3-8.2) g/dL Albumin (3.5-5.0) g/dL Procalcitonin (0.030-0.080) ng/mL Urine Color Dark Yellow A (Yellow) Urine Appearance Cloudy A (Clear) Urine pH 5.5 (4.6-8.0) Ur Specific [place] >=1.030 A (1.005-1.030) Urine Protein 100 A (Negative) Urine Glucose (UA) Negative (Negative) mg/dL Urine Ketones Negative (Negative) Urine Blood Large A (Negative) Urine Nitrite Negative (Negative) Urine Bilirubin Small A (Negative) Urine Urobilinogen 1.0 A (0.2) mg/dL Ur Leukocyte Esterase Small A (Negative) U Hyaline Cast (Auto) NONE SEEN (0-2) /LPF Urine Microscopic RBC 21-50 A (0-5) /HPF Urine Microscopic WBC 21-50 A (0-5) /HPF Ur Epithelial Cells Moderate A (None Seen) /HPF Urine Bacteria Moderate A (None Seen) /HPF Urine Culture Reflexed YES (NO) Influenza Type A Ag (NEGATIVE) Influenza Type B Ag (NEGATIVE) RSV (PCR) (NEGATIVE) SARS-CoV-2 (PCR) (NEGATIVE) Radiology Exams: Radiology Procedures Category Date Time Status CHEST 1 VIEW (PORTABLE) Stat Exams 06/22/23 06:28 Completed CHEST WITH CONTRAST [CT] Stat Exams 06/22/23 07:03 Completed Assessment/Plan (1) Pulmonary emboli Current Visit: Yes Status: Acute Qualifiers: Pulmonary embolism type: single subsegmental (without acute cor pulmonale) Qualified Code(s): I26.93 - Single subsegmental pulmonary embolism without acute cor pulmonale Assessment & Plan: -Ddimer elevated -CT chest showing PE in RLL -previous h/o PE in September of 2022 on anticoagulation with Eliquis from 10/14- 04/15 -lovenox therapeutic dosing, received 80mg in ED, will add 40mg and give 120mg this evening -Eliquis 10mg BID to be initiated in the morning x 7 days, then 5mg bid there after. Advised heme/onc consult due to multiple PE's may need anticoag evaluation as OP -tele -ECHO when available -Venous duplex when available -EKG with no acute ischemic changes, trops initially wnl, repeat in a.m. Code(s): I26.99 - OTHER PULMONARY EMBOLISM WITHOUT ACUTE COR PULMONALE (2) Right lower lobe pulmonary infiltrate Current Visit: Yes Status: Acute Assessment & Plan: -Bcult pending -Supportive therapies with supplemental oxygen with spo2 goal > 92% -RT evaluation -lactic acid, procal -Resp viral panel negative -IS -Ceftriaxone/azithromycin -Lovenox therapeutic dosing for PE -CT chest with RLL PE, Patchy air space shadowing is seen in the right lower lobe possibly due to infarct.Mild to moderate right-sided pleural effusion was seen. A 6.3mm soft tissue density / solid nodule seen in left lower lobe. CT at 6-12 months is advised according to The Fleischner [employer] pulmonary nodule recommendations. Code(s): R91.8 - OTHER NONSPECIFIC ABNORMAL FINDING OF LUNG FIELD (3) Leukocytosis Current Visit: Yes Status: Acute Assessment & Plan: -Most likely secondary to pneumonia -Ceftriaxone/azithromycin Code(s): D72.829 - ELEVATED WHITE BLOOD CELL COUNT, UNSPECIFIED (4) Hypertension Current Visit: Yes Status: Acute Assessment & Plan: -Pt hypotensive when arriving to floor requiring fluid bolus, now stable -hydralazine prn Code(s): I10 - ESSENTIAL (PRIMARY) HYPERTENSION Code(s): I26.99 - OTHER PULMONARY EMBOLISM WITHOUT ACUTE COR PULMONALE (2) Right lower lobe pulmonary infiltrate Current Visit: Yes Status: Acute Code(s): R91.8 - OTHER NONSPECIFIC ABNORMAL FINDING OF LUNG FIELD (3) Leukocytosis Current Visit: Yes Status: Acute Code(s): D72.829 - ELEVATED WHITE BLOOD CELL COUNT, UNSPECIFIED (4) Hypertension Current Visit: Yes Status: Acute Code(s): I10 - ESSENTIAL (PRIMARY) HYPERTENSION (5) UTI (urinary tract infection) Current Visit: Yes Status: Acute Code(s): N39.0 - URINARY TRACT INFECTION, SITE NOT SPECIFIED
[2023-06-23] MEDS: MORPHINE SULFATE 2 MG INJ IV PRN (05:41)
[2023-06-23 05:57] LABS: Absolute Neutrophil Ct (ANC) 10.63 x10^3/uL (1.4-6.9); BASOPHIL % 0.7 % (0.0-0.4); Basophil (Absolute #) 0.12 x10^3/uL (0-0.4); Eosinophil % 0.8 % (0.00-5.0); Eosinophil (Absolute #) 0.15 x10^3/uL (0-0.5); Hematocrit 42.3 % (35-47); Hemoglobin 12.3 g/dL (12.0-16.0); IMMATURE GRAN # 0.08 x10^3u/L (0.00-0.03); IMMATURE GRAN % 0.5 % (0.00-0.4); Lymphocyte (Absolute #) 4.59 x10^3/uL (1.0-4.6); Mean Cell Volume 81.2 fL (78-100); Mean Corpuscular Hemoglobin 23.6 pg (26-32); Mean Corpuscular Hgb Concent. 29.1 g/dL (32-36); Mean Platelet Volume 9.6 fL (7.5-11.0); Monocytes % 11.9 % (0.0-12.0); NUCLEATED RBC # 0.18 x10^3u/L (0.00-0.01); Neutrophil % 60.1 % (36.0-66.0); Platelet Count 357 x10^3/uL (150-450); Red Blood Count 5.21 x10^6/uL (4.1-5.4); Red Cell Distribution Width 21.5 % (11.5-14.0); White Blood Count 17.7 x10^3/uL (4.0-10.5)
[2023-06-23 06:20] LABS: ALBUMIN 3.6 g/dL (3.5-5.0); ANION GAP 13.4 MEQ/L (5-15); BILIRUBIN,TOTAL 1.4 mg/dL (0.2-1.3); Calcium 8.3 mg/dL (8.4-10.2); Creatinine 1 0.69 mg/dL (0.52-1.04); EST GLOMERULAR FILTRATION RATE 107.7 ML/MIN; Potassium 4.2 mmol/L (3.5-5.1); Total Protein 7.2 g/dL (6.3-8.2)
[2023-06-23 06:34] LABS: Slide Review 1 YES
[2023-06-23] MEDS ORDERED: ROCEPHIN 1 Gm-D5w 50 ml Bag** 1 G/50 ML IVPB IV SCH (10:00)
[2023-06-23] MEDS ORDERED: ELIQUIS 2.5 MG TABLET PO SCH (10:00)
--- NOTE | 2023-06-23 10:00 | PCM.DS ---
Discharge Summary Date of Admission: 06/22/23 12:01 Date of Discharge: 06/23/23 Admitting Physician: RAYNA CROCKETT MD Primary Care Provider: MATTHEW NOVAK Allergies Allergies latex Allergy (Verified 06/22/23 05:42) povidone-iodine [From Betadine] Allergy (Verified 06/22/23 05:42) soap [From Betadine] Allergy (Verified 06/22/23 05:42) Hospital Summary - Hospital Course Hospital Course: is a 48 year old female with a pmhx of HTN, PE (Eliquis d/cd in March 2023), every day smoker, and chronic back pain who presented to ED 06/22/23 with complaints of shortness of breath, right pleuritic pain with inspiration, dry cough, and light headedness for the past two days. Patient states current symptoms are similar to when she was diagnosed with a PE in September of 2022. She received 6 months of anti-coagulation which was discontinued in March 2023. On presentation patient was tachycardic, tachypneic, and hypertensive. CXR demonstrates right lung pleural parenchymal opacities. Minimal residual versus recurrent right base infiltrate/atelectasis. CT chest showing RLL PE, patchy air space shadowing possibly due to infact in the right lower lobe, mild to moderate right sided pleural effusion. 6.3mm soft tissue density/solid nodule EKG showing Sinus tachycardia, LAFB, no acute ischemic changes. Lab findings remarkable for leukocytosis with WBC at 15.0, DDimer elevated at 1.16, carbon dioxide at 15, and alk phos at 203, BNP at 1790. Respiratory panel negative. Patient given Ceftriaxone, lovenox, morphine, and duoneb. Initial treatment with therapeutic lovenox then Eliquis at 10mg bid dosing for 7 days, then Eliquis 5mg bid dosing thereafter. Patient advised she may have to be on long-term anticoagulation, advised follow up with hem/onc with Dr. Chris Nicholas as Op, as well as pulmonology (she follows with Dr. Novak). UA also suspicious for UTI which could be contributing to her elevated WBC. Will continue on cepodoxime for 7 days. She will need home oxygen prior to discharge which we will set up for her. Patient advised of Eliquis dosing as she states she has home (unexpired eliquis), there will be Eliquis available at the pharmacy for the 5mg bid dosing. Patient verbalized understanding and requesting discharge. All questions and concerns addressed, patient cleared for discharge. Discharge Note New Diagnosis:PE UTI PNA New Medications: cepodoxime/eliquis/azith Follow Up: PCP/Pulm/Hematology (Yu) Results pending: Final urine culture Latest Assessment & Plan (1) Pulmonary emboli Current Visit: Yes Status: Acute Qualifiers: Pulmonary embolism type: single subsegmental (without acute cor pulmonale) Qualified Code(s): I26.93 - Single subsegmental pulmonary embolism without acute cor pulmonale Assessment & Plan: -Ddimer elevated -CT chest showing PE in RLL -previous h/o PE in September of 2022 on anticoagulation with Eliquis from 10/14- 04/15 -lovenox therapeutic dosing, received 80mg in ED, will add 40mg and give 120mg this evening -Eliquis 10mg BID to be initiated in the morning x 7 days, then 5mg bid there after. Advised heme/onc consult due to multiple PE's may need anticoag evaluation as OP -tele -ECHO when available -Venous duplex when available -EKG with no acute ischemic changes, trops initially wnl, repeat in a.m. Code(s): I26.99 - OTHER PULMONARY EMBOLISM WITHOUT ACUTE COR PULMONALE (2) Right lower lobe pulmonary infiltrate Current Visit: Yes Status: Acute Assessment & Plan: -Bcult pending -Supportive therapies with supplemental oxygen with spo2 goal > 92% -RT evaluation -lactic acid, procal -Resp viral panel negative -IS -Ceftriaxone/azithromycin -Lovenox therapeutic dosing for PE -CT chest with RLL PE, Patchy air space shadowing is seen in the right lower lobe possibly due to infarct.Mild to moderate right-sided pleural effusion was seen. A 6.3mm soft tissue density / solid nodule seen in left lower lobe. CT at 6-12 months is advised according to The Fleischner [employer] pulmonary nodule recommendations. Code(s): R91.8 - OTHER NONSPECIFIC ABNORMAL FINDING OF LUNG FIELD (3) Leukocytosis Current Visit: Yes Status: Acute Assessment & Plan: -Most likely secondary to pneumonia -Ceftriaxone/azithromycin Code(s): D72.829 - ELEVATED WHITE BLOOD CELL COUNT, UNSPECIFIED (4) Hypertension Current Visit: Yes Status: Acute Assessment & Plan: -Pt hypotensive when arriving to floor requiring fluid bolus, now stable -hydralazine prn Code(s): I10 - ESSENTIAL (PRIMARY) HYPERTENSION (5) UTI (urinary tract infection) -Culture pending, will send home on cepodoxime for 7 days, recheck with PCP I spent 35 minutes [id number] with the patient on the day of discharge performing discharge exam, discussing hospital stay and discharge instructions with patient and caregivers, preparation of discharge records, prescriptions & referral forms and addressing any questions/concerns the patient had as documented above. - Vitals & Intake/Output Vital Signs: Vital Signs Temperature 97.2 F 06/23/23 08:54 Pulse Rate 103 H 06/23/23 08:54 Respiratory Rate 16 06/23/23 08:54 Blood Pressure 138/99 06/23/23 08:54 O2 Sat by Pulse Oximetry 95 06/23/23 08:54 Intake & Output: Intake & Output 06/20/23 06/21/23 06/22/23 06/23/23 11:59 11:59 11:59 11:59 Intake Total 4202 Output Total 300 Balance 3902 Weight 132 kg 132 kg - Lab Result Diagrams: 06/23/23 05:40 06/23/23 05:40 Lab Results-Last 24 Hrs: Lab Results-Last 24 Hours 06/22/23 06/22/23 06/22/23 Range/Units 10:40 13:25 14:15 WBC (4.0-10.5) x10^3/uL RBC (4.1-5.4) x10^6/uL Hgb (12.0-16.0) g/dL Hct (35-47) % MCV (78-100) fL MCH (26-32) pg MCHC (32-36) g/dL RDW (11.5-14.0) % Plt Count (150-450) x10^3/uL MPV (7.5-11.0) fL Gran % (36.0-66.0) % Immature Gran % (Auto) (0.00-0.4) % Nucleat RBC Rel Count (0.00-0.1) % Eos # (Auto) (0-0.5) x10^3/uL Immature Gran # (Auto) (0.00-0.03) x10^3u/L Absolute Lymphs (auto) (1.0-4.6) x10^3/uL Absolute Monos (auto) (0.0-1.3) x10^3/uL Absolute Nucleated RBC (0.00-0.01) x10^3u/L Lymphocytes % (24.0-44.0) % Monocytes % (0.0-12.0) % Eosinophils % (0.00-5.0) % Basophils % (0.0-0.4) % Absolute Granulocytes (1.4-6.9) x10^3/uL Basophils # (0-0.4) x10^3/uL Sodium (137-145) mmol/L Potassium (3.5-5.1) mmol/L Chloride (98-107) mmol/L Carbon Dioxide (22-30) mmol/L Anion Gap (5-15) MEQ/L BUN (7-17) mg/dL Creatinine (0.52-1.04) mg/dL Estimated GFR ML/MIN Glucose (74-106) mg/dL POC Glucometer (74 to 106) mg/dL Hemoglobin A1c (4.5-6.0) % Lactic Acid 1.8 (0.4-2.0) Calcium (8.4-10.2) mg/dL Total Bilirubin (0.2-1.3) mg/dL AST (14-36) U/L ALT (0-35) U/L Alkaline Phosphatase (38-126) U/L Troponin I < 0.012 < 0.012 (0.000-0.034) ng/mL Serum Total Protein (6.3-8.2) g/dL Albumin (3.5-5.0) g/dL Procalcitonin 0.080 (0.030-0.080) ng/mL Urine Color (Yellow) Urine Appearance (Clear) Urine pH (4.6-8.0) Ur Specific [place] (1.005-1.030) Urine Protein (Negative) Urine Glucose (UA) (Negative) mg/dL Urine Ketones (Negative) Urine Blood (Negative) Urine Nitrite (Negative) Urine Bilirubin (Negative) Urine Urobilinogen (0.2) mg/dL Ur Leukocyte Esterase (Negative) U Hyaline Cast (Auto) (0-2) /LPF Urine Microscopic RBC (0-5) /HPF Urine Microscopic WBC (0-5) /HPF Ur Epithelial Cells (None Seen) /HPF Urine Bacteria (None Seen) /HPF Urine Culture Reflexed (NO) Slides for Path Review 06/22/23 06/22/23 06/22/23 Range/Units 16:00 16:52 20:15 WBC (4.0-10.5) x10^3/uL RBC (4.1-5.4) x10^6/uL Hgb (12.0-16.0) g/dL Hct (35-47) % MCV (78-100) fL MCH (26-32) pg MCHC (32-36) g/dL RDW (11.5-14.0) % Plt Count (150-450) x10^3/uL MPV (7.5-11.0) fL Gran % (36.0-66.0) % Immature Gran % (Auto) (0.00-0.4) % Nucleat RBC Rel Count (0.00-0.1) % Eos # (Auto) (0-0.5) x10^3/uL Immature Gran # (Auto) (0.00-0.03) x10^3u/L Absolute Lymphs (auto) (1.0-4.6) x10^3/uL Absolute Monos (auto) (0.0-1.3) x10^3/uL Absolute Nucleated RBC (0.00-0.01) x10^3u/L Lymphocytes % (24.0-44.0) % Monocytes % (0.0-12.0) % Eosinophils % (0.00-5.0) % Basophils % (0.0-0.4) % Absolute Granulocytes (1.4-6.9) x10^3/uL Basophils # (0-0.4) x10^3/uL Sodium (137-145) mmol/L Potassium (3.5-5.1) mmol/L Chloride (98-107) mmol/L Carbon Dioxide (22-30) mmol/L Anion Gap (5-15) MEQ/L BUN (7-17) mg/dL Creatinine (0.52-1.04) mg/dL Estimated GFR ML/MIN Glucose (74-106) mg/dL POC Glucometer 127 H (74 to 106) mg/dL Hemoglobin A1c 6.22 H (4.5-6.0) % Lactic Acid (0.4-2.0) Calcium (8.4-10.2) mg/dL Total Bilirubin (0.2-1.3) mg/dL AST (14-36) U/L ALT (0-35) U/L Alkaline Phosphatase (38-126) U/L Troponin I (0.000-0.034) ng/mL Serum Total Protein (6.3-8.2) g/dL Albumin (3.5-5.0) g/dL Procalcitonin (0.030-0.080) ng/mL Urine Color Dark Yellow A (Yellow) Urine Appearance Cloudy A (Clear) Urine pH 5.5 (4.6-8.0) Ur Specific [place] >=1.030 A (1.005-1.030) Urine Protein 100 A (Negative) Urine Glucose (UA) Negative (Negative) mg/dL Urine Ketones Negative (Negative) Urine Blood Large A (Negative) Urine Nitrite Negative (Negative) Urine Bilirubin Small A (Negative) Urine Urobilinogen 1.0 A (0.2) mg/dL Ur Leukocyte Esterase Small A (Negative) U Hyaline Cast (Auto) NONE SEEN (0-2) /LPF Urine Microscopic RBC 21-50 A (0-5) /HPF Urine Microscopic WBC 21-50 A (0-5) /HPF Ur Epithelial Cells Moderate A (None Seen) /HPF Urine Bacteria Moderate A (None Seen) /HPF Urine Culture Reflexed YES (NO) Slides for Path Review 06/22/23 06/23/23 06/23/23 Range/Units 21:17 05:40 05:40 WBC 17.7 H (4.0-10.5) x10^3/uL RBC 5.21 (4.1-5.4) x10^6/uL Hgb 12.3 (12.0-16.0) g/dL Hct 42.3 (35-47) % MCV 81.2 (78-100) fL MCH 23.6 L (26-32) pg MCHC 29.1 L (32-36) g/dL RDW 21.5 H (11.5-14.0) % Plt Count 357 (150-450) x10^3/uL MPV 9.6 (7.5-11.0) fL Gran % 60.1 (36.0-66.0) % Immature Gran % (Auto) 0.5 H (0.00-0.4) % Nucleat RBC Rel Count 1.0 H (0.00-0.1) % Eos # (Auto) 0.15 (0-0.5) x10^3/uL Immature Gran # (Auto) 0.08 H (0.00-0.03) x10^3u/L Absolute Lymphs (auto) 4.59 (1.0-4.6) x10^3/uL Absolute Monos (auto) 2.10 H (0.0-1.3) x10^3/uL Absolute Nucleated RBC 0.18 H (0.00-0.01) x10^3u/L Lymphocytes % 26.0 (24.0-44.0) % Monocytes % 11.9 (0.0-12.0) % Eosinophils % 0.8 (0.00-5.0) % Basophils % 0.7 (0.0-0.4) % Absolute Granulocytes 10.63 H (1.4-6.9) x10^3/uL Basophils # 0.12 (0-0.4) x10^3/uL Sodium 135 L (137-145) mmol/L Potassium 4.2 (3.5-5.1) mmol/L Chloride 105 (98-107) mmol/L Carbon Dioxide 21 L (22-30) mmol/L Anion Gap 13.4 (5-15) MEQ/L BUN 13 (7-17) mg/dL Creatinine 0.69 (0.52-1.04) mg/dL Estimated GFR 107.7 ML/MIN Glucose 93 (74-106) mg/dL POC Glucometer 102 (74 to 106) mg/dL Hemoglobin A1c (4.5-6.0) % Lactic Acid (0.4-2.0) Calcium 8.3 L (8.4-10.2) mg/dL Total Bilirubin 1.40 H (0.2-1.3) mg/dL AST 33 (14-36) U/L ALT 20 (0-35) U/L Alkaline Phosphatase 198 H (38-126) U/L Troponin I (0.000-0.034) ng/mL Serum Total Protein 7.2 (6.3-8.2) g/dL Albumin 3.6 (3.5-5.0) g/dL Procalcitonin (0.030-0.080) ng/mL Urine Color (Yellow) Urine Appearance (Clear) Urine pH (4.6-8.0) Ur Specific [place] (1.005-1.030) Urine Protein (Negative) Urine Glucose (UA) (Negative) mg/dL Urine Ketones (Negative) Urine Blood (Negative) Urine Nitrite (Negative) Urine Bilirubin (Negative) Urine Urobilinogen (0.2) mg/dL Ur Leukocyte Esterase (Negative) U Hyaline Cast (Auto) (0-2) /LPF Urine Microscopic RBC (0-5) /HPF Urine Microscopic WBC (0-5) /HPF Ur Epithelial Cells (None Seen) /HPF Urine Bacteria (None Seen) /HPF Urine Culture Reflexed (NO) Slides for Path Review YES 06/23/23 Range/Units 07:19 WBC (4.0-10.5) x10^3/uL RBC (4.1-5.4) x10^6/uL Hgb (12.0-16.0) g/dL Hct (35-47) % MCV (78-100) fL MCH (26-32) pg MCHC (32-36) g/dL RDW (11.5-14.0) % Plt Count (150-450) x10^3/uL MPV (7.5-11.0) fL Gran % (36.0-66.0) % Immature Gran % (Auto) (0.00-0.4) % Nucleat RBC Rel Count (0.00-0.1) % Eos # (Auto) (0-0.5) x10^3/uL Immature Gran # (Auto) (0.00-0.03) x10^3u/L Absolute Lymphs (auto) (1.0-4.6) x10^3/uL Absolute Monos (auto) (0.0-1.3) x10^3/uL Absolute Nucleated RBC (0.00-0.01) x10^3u/L Lymphocytes % (24.0-44.0) % Monocytes % (0.0-12.0) % Eosinophils % (0.00-5.0) % Basophils % (0.0-0.4) % Absolute Granulocytes (1.4-6.9) x10^3/uL Basophils # (0-0.4) x10^3/uL Sodium (137-145) mmol/L Potassium (3.5-5.1) mmol/L Chloride (98-107) mmol/L Carbon Dioxide (22-30) mmol/L Anion Gap (5-15) MEQ/L BUN (7-17) mg/dL Creatinine (0.52-1.04) mg/dL Estimated GFR ML/MIN Glucose (74-106) mg/dL POC Glucometer 119 H (74 to 106) mg/dL Hemoglobin A1c (4.5-6.0) % Lactic Acid (0.4-2.0) Calcium (8.4-10.2) mg/dL Total Bilirubin (0.2-1.3) mg/dL AST (14-36) U/L ALT (0-35) U/L Alkaline Phosphatase (38-126) U/L Troponin I (0.000-0.034) ng/mL Serum Total Protein (6.3-8.2) g/dL Albumin (3.5-5.0) g/dL Procalcitonin (0.030-0.080) ng/mL Urine Color (Yellow) Urine Appearance (Clear) Urine pH (4.6-8.0) Ur Specific [place] (1.005-1.030) Urine Protein (Negative) Urine Glucose (UA) (Negative) mg/dL Urine Ketones (Negative) Urine Blood (Negative) Urine Nitrite (Negative) Urine Bilirubin (Negative) Urine Urobilinogen (0.2) mg/dL Ur Leukocyte Esterase (Negative) U Hyaline Cast (Auto) (0-2) /LPF Urine Microscopic RBC (0-5) /HPF Urine Microscopic WBC (0-5) /HPF Ur Epithelial Cells (None Seen) /HPF Urine Bacteria (None Seen) /HPF Urine Culture Reflexed (NO) Slides for Path Review Micro Results-Entire Visit: Accuchecks Date 06/23/23 Date 06/22/23 Time 07:59 Time 17:11 - Radiology Exams Ordered Rad Exams-Entire Visit: Radiology Procedures Category Date Time Status CHEST 1 VIEW (PORTABLE) Stat Exams 06/22/23 06:28 Completed CHEST WITH CONTRAST [CT] Stat Exams 06/22/23 07:03 Completed - Procedures and Test Procedures and Tests throughout Hospitalization: Therapy Orders & Screens 06/22/23 06:50 Respiratory Therapy Assessment DAILY Comment: 06/22/23 12:22 Oxygen Nasal Cannula 2 lpm Comment: Respiratory Therapy Consult ONCE Comment: Reason For Exam: 06/22/23 13:06 EKG REPEAT IN AM Comment: Diagnosis: sob/ right pleuritic pain 06/23/23 09:41 Qualify for Home Oxygen ROUTINE Comment: Diagnosis: sob/ right pleuritic pain Discharge Exam General Appearance: no apparent distress Neurologic Exam: alert, oriented x 3, cooperative Eye Exam: PERRL Ears, Nose, Throat Exam: normal ENT inspection Neck Exam: normal inspection Respiratory Exam: crackles/rales Cardiovascular Exam: regular rate/rhythm, normal heart sounds Gastrointestinal/Abdomen Exam: soft, normal bowel sounds Pelvic Exam: deferred Rectal Exam: deferred Back Exam: normal inspection Extremity Exam: normal inspection Skin Exam: normal color Final Diagnosis/Problem List - Final Discharge Diagnosis/Problem (1) Pulmonary emboli Current Visit: Yes Status: Acute Code(s): I26.99 - OTHER PULMONARY EMBOLISM WITHOUT ACUTE COR PULMONALE (2) Right lower lobe pulmonary infiltrate Current Visit: Yes Status: Acute Code(s): R91.8 - OTHER NONSPECIFIC ABNORMAL FINDING OF LUNG FIELD (3) Leukocytosis Current Visit: Yes Status: Acute Code(s): D72.829 - ELEVATED WHITE BLOOD CELL COUNT, UNSPECIFIED (4) Hypertension Current Visit: Yes Status: Acute Code(s): I10 - ESSENTIAL (PRIMARY) HYPERTENSION - Discharge Disposition: Home, Self-Care Condition: Stable Prescriptions: New Azithromycin [Azithromycin 250 mg Pack] 250 mg PO UD #6 tablet Apixaban [Eliquis] 10 mg PO BID 7 Days #14 tablet Cefpodoxime Proxetil 200 mg [Vantin 200 mg] 200 mg PO BID PRN 7 Days #14 tablet Apixaban [Eliquis] 5 mg PO BID 30 Days #60 tablet Continue Albuterol Sulfate [Albuterol Sulfate Hfa] 2 puffs IH QID PRN PRN PRN Reason: Shortness Of Breath Instructions: Oxygen Therapy, Adult (DC) Additional Instructions: WEAR 2L/NC AT ALL TIMES [facility] AT [phone] WHEN LEAVE [facility] AND HE WILL MEET YOU AT YOUR HOME TO DELIVER YOUR CONCENTRATOR IF THERE ARE ANY ISSUES- YOU CAN ALSO CALL THE [employer] AFTER HOURS NUMBER AT [phone]- FOLLOW THE AFTER HOURS PROMPTS USE HOME SUPPLY OF ELIQUIS 5 MG FOR THE FIRST 7 DAYS- TAKE DIRECTED ON MED LIST- THEN START NEW RX DIRECTED IF YOU HAVE ANY PROBLEMS WITH THE ELIQUIS PLEASE CALL AND NOTIFY THE [employer] HISTORY INSTRUCTOR FIDELINA BY CALLING [phone] - LET THEM KNOW SHE REQUESTED TO BE CALLED Follow up with: MATTHEW NOVAK [Primary Care Provider] -
[2023-06-23] MEDS: Zithromax 500 MG/ 250 ML NaCl Premix 500 MG/250 ML IVPB IV SCH (10:49)
[2023-06-23] MEDS ORDERED: OMNICEF 300 MG PO SCH (11:00)
[2023-06-23] MEDS ORDERED: Zithromax 250 MG TABLET PO SCH (12:00)
[2023-06-23 12:08] VITALS: BP 146/85; PULSE 106; RESP 20; TEMP 97.3; O2SAT 92
== END 2023-06-23 13:44 | disposition home or self-care (01) ==
LOC: ED 05:29 → MED SURG 12:01
PROVIDERS: ADMIT Internal Medicine; ATTEND Internal Medicine
DX: I26.99 Other pulmonary embolism without acute cor pulmonale (principal); R91.8 Other nonspecific abnormal finding of lung field; D72.829 Elevated white blood cell count, unspecified; I10 Essential (primary) hypertension; N39.0 Urinary tract infection, site not specified; F17.200 Nicotine dependence, unspecified, uncomplicated; Z79.01 Long term (current) use of anticoagulants; Z79.899 Other long term (current) drug therapy; Z20.828 Contact with and (suspected) exposure to other viral communicable diseases
CPT/HCPCS: 0241U; 36140; 36415; 71045; 71260; 80053; 81001; 82947; 83036; 83605; 83735; 83880; 84145; 84484; 85025; 85379; 87040; 87086; 93005; 93041; 93268; 94640; 94760; 94762; 96372; 96374; 99285; 99291; G0378; Q3014; J0456; J0696; J1650; J2270; A9270-GY

== ENCOUNTER 2023-06-25 23:42 | Observation (INO) | payer MEDICARE ==
--- NOTE | 2023-06-25 23:59 | ERPHSYRPT ---
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 are aware that any significant change in condition or worsening of symptoms should prompt an immediate return to this or the closest emergency department or call 911.
[2023-06-26 00:20] LABS: Absolute Neutrophil Ct (ANC) 9.45 x10^3/uL (1.4-6.9); BASOPHIL % 0.4 % (0.0-0.4); Basophil (Absolute #) 0.06 x10^3/uL (0-0.4); Eosinophil % 1.3 % (0.00-5.0); Eosinophil (Absolute #) 0.18 x10^3/uL (0-0.5); Hematocrit 38.3 % (35-47); Hemoglobin 11.9 g/dL (12.0-16.0); IMMATURE GRAN # 0.04 x10^3u/L (0.00-0.03); IMMATURE GRAN % 0.3 % (0.00-0.4); Lymphocyte (Absolute #) 3.53 x10^3/uL (1.0-4.6); Lymphocytes % 24.6 % (24.0-44.0); Mean Cell Volume 78.5 fL (78-100); Mean Corpuscular Hemoglobin 24.4 pg (26-32); Mean Corpuscular Hgb Concent. 31.1 g/dL (32-36); Mean Platelet Volume 9.4 fL (7.5-11.0); Monocyte (Absolute #) 1.07 x10^3/uL (0.0-1.3); Monocytes % 7.5 % (0.0-12.0); NUCLEATED RBC # 0.06 x10^3u/L (0.00-0.01); NUCLEATED RBC % 0.4 % (0.00-0.1); Neutrophil % 65.9 % (36.0-66.0); Platelet Count 414 x10^3/uL (150-450); Red Blood Count 4.88 x10^6/uL (4.1-5.4); Red Cell Distribution Width 20.4 % (11.5-14.0); White Blood Count 14.3 x10^3/uL (4.0-10.5)
[2023-06-26 00:33] LABS: ALBUMIN 3.5 g/dL (3.5-5.0); ANION GAP 12.1 MEQ/L (5-15); BILIRUBIN,TOTAL 1.2 mg/dL (0.2-1.3); Calcium 8.5 mg/dL (8.4-10.2); Creatinine 1 0.7 mg/dL (0.52-1.04); EST GLOMERULAR FILTRATION RATE 107.3 ML/MIN; Potassium 3.9 mmol/L (3.5-5.1); Total Protein 7.1 g/dL (6.3-8.2)
[2023-06-26] MEDS ORDERED: MORPHINE SULFATE 4 MG INJ IV ONE ×3 (02:15→15:37)
[2023-06-26] MEDS ORDERED: MORPHINE SULFATE 4 MG INJ ONE ×3 (02:22→15:43)
--- NOTE | 2023-06-26 02:58 | XRAY ---
CLINICAL HISTORY:epigastric pain COMPARISON:NONE TECHNIQUE:Contiguous axial images were obtained from the level of the diaphragm to the pubic symphysis without intravenous or oral contrast. Coronal and sagittal reconstructions were likewise performed and indicated to increase the sensitivity for detecting clinically relevant pathology. CT scan was performed according to ALARA (as low as reasonable achievable) FINDINGS: Moderate right side pleural effusion with passive segment segmental collapse with consolidation involving right lower lobe basal segment. Evaluation of the abdominal and pelvic visceral organs is limited without intravenous contrast. The unenhanced liver,pancreas, and adrenal glands are grossly unremarkable. The gallbladder is not seen. The kidneys are normal in size and attenuation. There is no hydronephrosis or perinephric stranding. The ureters are normal in caliber. Excrete contrast material or possibly because of previous intravenous contrast study is noted in bilateral pelvicalyceal systems, ureters and urinary bladder limiting evaluation of Calculi. No adenopathy or fluid collections are seen. No evidence of focal or diffuse bowel wall thickening or evidence of bowel obstruction is seen. The appendix is visualized in the right lower quadrant and appears within normal limits. The aorta is normal in caliber. The urinary bladder is normal in contour. Pelvic viscera are grossly unremarkable. No aggressive appearing osseous lesions are identified. IMPRESSION: 1. Moderate right side pleural effusion with passive segment segmental collapse with consolidation involving right lower lobe basal segment. 2. No obvious acute intra-abdominal abnormality detected. Electronically Signed by: Dr. Benito Castillo MD. (06/26/2023 02:54:00 EST)
--- NOTE | 2023-06-26 03:04 | XRAY ---
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 In addition, sagittal and coronal reconstructions were performed to potentially increase the sensitivity for the detection of disease. CT scan was performed according to ALARA (as low as reasonable achievable). FINDINGS: There is large right lower lobe posterior segment parenchymal consolidation possibly due to infarct. Moderate to gross right-sided pleural effusion seen. Few linear atelectasis are noted in right upper, mid and lower lobes. 6.3mm soft tissue density / solid nodule seen in left lower lobe. Rest of lungs are clear. The central airways are patent. There are no left pleural effusions. No pneumothorax is seen. Evaluation of the mediastinum and chencho is limited due to the lack of intravenous contrast. No axillary or mediastinal adenopathy is identified. The thyroid is unremarkable. The heart, aorta, and pulmonary arteries are of normal size and configuration. Multiple tiny calcific foci seen in the spleen are likely benign. Status post cholecystectomy. The rest of the scanned upper abdomen is unremarkable. Mild degenerative changes were seen in the visualized spine. IMPRESSION: 1. Large right lower lobe posterior segment parenchymal consolidation possibly due to infarct.- increased in size. 2. Moderate to gross right-sided pleural effusion- increasedin size. 3. Few linear atelectasis are noted in right upper, mid and lower lobes.- interval development. 4. Static 6.3mm soft tissue density / solid nodule seen in left lower lobe. CT at 6-12 months is advised according to The Fleischner Societypulmonary nodule recommendations. Electronically Signed by: Dr. Benito Castillo MD. (06/26/2023 03:00:10 EST)
[2023-06-26 03:15] LABS: HCG URINE TEST NEGATIVE (NEGATIVE)
[2023-06-26 03:26] LABS: Appearance Turbid (Clear); Bacteria Many /HPF (None Seen); Bilirubin Small (Negative); Blood Large (Negative); Epithelial Cells Moderate /HPF (None Seen); Glucose, Urine Negative (Negative); Hyaline Casts NONE SEEN /LPF (0-2); Ketones Negative (Negative); Leukocyte Esterase Small (Negative); Nitrite Negative (Negative); Ph 5.5 (4.6-8.0); Protein,Urine Dip 100 (Negative); RBC >100 /HPF (0-5); Specific Gravity >=1.030 (1.005-1.030)
[2023-06-26 03:43] LABS: WBC 51-100 /HPF (0-5)
[2023-06-26 03:48] LABS: ADD URINE CULTURE? YES (NO); Trichomonas Few /HPF (None Seen)
[2023-06-26] MEDS ORDERED: ROCEPHIN 1 Gm-D5w 50 ml Bag** 1 G/50 ML IVPB IV STA (04:41)
[2023-06-26] MEDS ORDERED: ROCEPHIN 1 Gm-D5w 50 ml Bag** 1 G/50 ML IVPB IV ONE (05:26)
[2023-06-26] MEDS ORDERED: HEPARIN 5000 UNITS/0.5 ML (HIGH RISK MED) IV STA (06:40)
[2023-06-26] MEDS ORDERED: Flagyl 500 MG ONE (07:34)
[2023-06-26] MEDS ORDERED: Flagyl 500 MG PO ONE (07:34)
[2023-06-26 07:56] LABS: Hematocrit 38.8 % (35-47); Mean Cell Volume 77.3 fL (78-100); Mean Corpuscular Hemoglobin 23.9 pg (26-32); Mean Corpuscular Hgb Concent. 30.9 g/dL (32-36); Mean Platelet Volume 9.4 fL (7.5-11.0); Platelet Count 440 x10^3/uL (150-450); Red Blood Count 5.02 x10^6/uL (4.1-5.4); Red Cell Distribution Width 20.6 % (11.5-14.0); White Blood Count 14.8 x10^3/uL (4.0-10.5)
[2023-06-26 08:16] LABS: INR 1.26 (0.8-3.0); PROTIME 13.5 SECONDS (9.4-12.5); PTT 36.5 SECONDS (25.1-36.5)
[2023-06-26] MEDS ORDERED: Zofran 4 MG/2 ML VIAL ONE ×2 (08:39→15:43)
[2023-06-26] MEDS ORDERED: Zofran 4 MG/2 ML VIAL IV ONE ×2 (08:39→15:37)
[2023-06-26] MEDS ORDERED: HEPARIN 5000 UNITS/0.5 ML (HIGH RISK MED) ONE (09:38)
[2023-06-26] MEDS: Heparin 25,000 units/D5W: USE ORDER SET PROTO 25,000 UNITS/250 ML BAG IV SCH (09:41)
[2023-06-26] MEDS ORDERED: Versed 50 MG/ 10 Ml MDV ONE (12:09)
[2023-06-27] MEDS ORDERED: TYLENOL 325 MG PO PRN (00:07)
[2023-06-27] MEDS ORDERED: Zofran 4 MG/2 ML VIAL IV PRN (00:07)
[2023-06-27] MEDS: MORPHINE SULFATE 4 MG INJ IV PRN ×2 (00:43→05:46)
[2023-06-27] MEDS: FLAGYL 500 MG IVPB 500 MG/100 ML BAG IV SCH ×2 (01:00→05:50)
[2023-06-27 01:36] VITALS: TEMP 98.2
[2023-06-27] MEDS ORDERED: Heparin 25,000 units/D5W: USE ORDER SET PROTO 25,000 UNITS/250 ML BAG IV ONE (01:55)
[2023-06-27] MEDS ORDERED: PROVENTIL 2.5 MG/3 ML NEB IH PRN (02:33)
[2023-06-27] MEDS ORDERED: Docusate Sodium 100 MG PO PRN (02:38)
[2023-06-27] MEDS: Heparin 25,000 units/D5W: USE ORDER SET PROTO 25,000 UNITS/250 ML BAG IV SCH (02:44)
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
[2023-06-27 05:53] LABS: ALBUMIN 3.5 g/dL (3.5-5.0); ANION GAP 13.1 MEQ/L (5-15); Calcium 8.6 mg/dL (8.4-10.2); Creatinine 1 0.87 mg/dL (0.52-1.04); EST GLOMERULAR FILTRATION RATE 82.6 ML/MIN; Potassium 3.9 mmol/L (3.5-5.1)
[2023-06-27 06:40] LABS: Hematocrit 38.8 % (35-47); Hemoglobin 11.9 g/dL (12.0-16.0); Mean Corpuscular Hemoglobin 24.2 pg (26-32); Mean Corpuscular Hgb Concent. 30.7 g/dL (32-36); Mean Platelet Volume 9.3 fL (7.5-11.0); Platelet Count 435 x10^3/uL (150-450); Red Blood Count 4.91 x10^6/uL (4.1-5.4); Red Cell Distribution Width 20.4 % (11.5-14.0); White Blood Count 12.8 x10^3/uL (4.0-10.5)
[2023-06-27] MEDS ORDERED: HEPARIN 5000 UNITS/0.5 ML (HIGH RISK MED) IV PRN (07:14)
[2023-06-27 07:42] VITALS: RESP 16
--- NOTE | 2023-06-27 08:19 | PCM.DS ---
Discharge Summary Date of Admission: 06/26/23 23:47 Date of Discharge: 06/27/23 Admitting Physician: NILS HARTLEY MD Consults: Consults on Case 06/27/23 03:06 Case Management [facility] Needs Assessment ROUTINE Primary Care Provider: MATTHEW NOVAK Allergies Allergies latex Allergy (Verified 06/26/23 00:17) povidone-iodine [From Betadine] Allergy (Verified 06/26/23 00:17) soap [From Betadine] Allergy (Verified 06/26/23 00:17) Hospital Summary - Hospital Course Hospital Course: is a 48 year old female with a history of recurrent PE and pneumonia who presents to the hospital with dyspnea. In September 2022, the patient was found to have pneumonia and PE, and was treated with antibiotics and 6 months of Eliquis. She was reevaluated in March [address] Novak with a CT scan which showed no residual clot burden, so Eliquis was stopped after the 6 months of anticoagulation. In May 2023, the patient was noted to have recurrent PE and pneumonia and was placed back on Eliquis. She also recently had been placed on 2LPM oxygen at home. The patient now presents to the hospital with acute dyspnea, sharp epigastric pain and abdominal fullness, and worsening acute on chronic lower leg edema. In the ED, there was concern on imaging and exam of acute right heart strain (leg edema, right pleural effusion), so a transfer request was initiated and accepted by Dr. Cruz at [facility] at 6:39 AM on 06/26/23. Dr. Cruz requested that the patient be placed on an IV heparin infusion instead of Eliquis. However, the hospital has not had any beds available for her, and will not have any beds available at least until the morning of 06/27/23, so the ED requested admission for IV heparin infusion and care until the receiving hospital can accept her care. Also in the ED, trichomonas was noted on UA (which prompted administration of Flagyl x 1) and there was evidence of a possible UTI. Today she continues to have SOB. BP is elevated. Lasix x1 ordered for right pleural effusion. Hopefully this will help to bring BP down as well. Transportation is coming soon to [facility]. She has a bed ready at [place] in [place]. She denies CP, abd. pain, N/V/D. She is sitting up in bed eating breakfast. - Vitals & Intake/Output Vital Signs: Vital Signs Temperature 98.2 F 06/27/23 00:45 Pulse Rate 96 H 06/27/23 07:38 Respiratory Rate 16 06/27/23 07:38 Blood Pressure 140/103 06/27/23 07:13 O2 Sat by Pulse Oximetry 97 06/27/23 07:38 Intake & Output: Intake & Output 06/24/23 06/25/23 06/26/23 06/27/23 11:59 11:59 11:59 11:59 Intake Total 0 Output Total 300 Balance -300 Weight 134 kg 131.7 kg - Lab Result Diagrams: 06/27/23 06:35 06/27/23 04:37 Lab Results-Last 24 Hrs: Lab Results-Last 24 Hours 06/26/23 06/26/23 06/26/23 Range/Units 07:47 07:47 10:45 WBC (4.0-10.5) x10^3/uL RBC (4.1-5.4) x10^6/uL Hgb (12.0-16.0) g/dL Hct (35-47) % MCV (78-100) fL MCH (26-32) pg MCHC (32-36) g/dL RDW (11.5-14.0) % Plt Count (150-450) x10^3/uL MPV (7.5-11.0) fL PT 13.5 H (9.4-12.5) SECONDS INR 1.26 (0.8-3.0) APTT 36.5 > 139.0 H* (25.1-36.5) SECONDS Sodium (137-145) mmol/L Potassium (3.5-5.1) mmol/L Chloride (98-107) mmol/L Carbon Dioxide (22-30) mmol/L Anion Gap (5-15) MEQ/L BUN (7-17) mg/dL Creatinine (0.52-1.04) mg/dL Estimated GFR ML/MIN Glucose (74-106) mg/dL Calcium (8.4-10.2) mg/dL Total Bilirubin (0.2-1.3) mg/dL AST (14-36) U/L ALT (0-35) U/L Alkaline Phosphatase (38-126) U/L Troponin I < 0.012 (0.000-0.034) ng/mL NT-Pro-B Natriuret Pep (<300) pg/mL Serum Total Protein (6.3-8.2) g/dL Albumin (3.5-5.0) g/dL 06/26/23 06/26/23 06/27/23 Range/Units 14:34 18:40 01:10 WBC (4.0-10.5) x10^3/uL RBC (4.1-5.4) x10^6/uL Hgb (12.0-16.0) g/dL Hct (35-47) % MCV (78-100) fL MCH (26-32) pg MCHC (32-36) g/dL RDW (11.5-14.0) % Plt Count (150-450) x10^3/uL MPV (7.5-11.0) fL PT (9.4-12.5) SECONDS INR (0.8-3.0) APTT 43.8 H 52.6 H 49.0 H (25.1-36.5) SECONDS Sodium (137-145) mmol/L Potassium (3.5-5.1) mmol/L Chloride (98-107) mmol/L Carbon Dioxide (22-30) mmol/L Anion Gap (5-15) MEQ/L BUN (7-17) mg/dL Creatinine (0.52-1.04) mg/dL Estimated GFR ML/MIN Glucose (74-106) mg/dL Calcium (8.4-10.2) mg/dL Total Bilirubin (0.2-1.3) mg/dL AST (14-36) U/L ALT (0-35) U/L Alkaline Phosphatase (38-126) U/L Troponin I (0.000-0.034) ng/mL NT-Pro-B Natriuret Pep (<300) pg/mL Serum Total Protein (6.3-8.2) g/dL Albumin (3.5-5.0) g/dL 06/27/23 06/27/23 06/27/23 Range/Units 04:37 06:35 06:35 WBC 12.8 H (4.0-10.5) x10^3/uL RBC 4.91 (4.1-5.4) x10^6/uL Hgb 11.9 L (12.0-16.0) g/dL Hct 38.8 (35-47) % MCV 79.0 (78-100) fL MCH 24.2 L (26-32) pg MCHC 30.7 L (32-36) g/dL RDW 20.4 H (11.5-14.0) % Plt Count 435 (150-450) x10^3/uL MPV 9.3 (7.5-11.0) fL PT (9.4-12.5) SECONDS INR (0.8-3.0) APTT 47.6 H (25.1-36.5) SECONDS Sodium 133 L (137-145) mmol/L Potassium 3.9 (3.5-5.1) mmol/L Chloride 105 (98-107) mmol/L Carbon Dioxide 19 L (22-30) mmol/L Anion Gap 13.1 (5-15) MEQ/L BUN 19 H (7-17) mg/dL Creatinine 0.87 (0.52-1.04) mg/dL Estimated GFR 82.6 ML/MIN Glucose 109 H (74-106) mg/dL Calcium 8.6 (8.4-10.2) mg/dL Total Bilirubin 1.00 (0.2-1.3) mg/dL AST 27 (14-36) U/L ALT 18 (0-35) U/L Alkaline Phosphatase 216 H (38-126) U/L Troponin I (0.000-0.034) ng/mL NT-Pro-B Natriuret Pep 2690 (<300) pg/mL Serum Total Protein 7.0 (6.3-8.2) g/dL Albumin 3.5 (3.5-5.0) g/dL - Radiology Exams Ordered Rad Exams-Entire Visit: Radiology Procedures Category Date Time Status ABDOMEN AND PELVIS W/0 CONTRAS [CT] Stat Exams 06/26/23 00:45 Completed CHEST WITHOUT CONTRAST [CT] Stat Exams 06/26/23 01:13 Completed - Procedures and Test Procedures and Tests throughout Hospitalization: Therapy Orders & Screens 06/27/23 00:07 EKG REPEAT IN AM Comment: 06/27/23 00:37 RT Screen per Nursing Assess ONCE Comment: Protocol Order Physician Instructions: Greater than 3 points order RT Admission Screen Reason For Exam: Triggered on Admission Diagnosis: PE, pnuemonia, uti Diagnosis: PE, pnuemonia, uti Pneumonia: Yes Home O2: Yes Asthma: No CHF: No Home CPAP/BIPAP: No Home Nebs/MDI: Yes Total Points: 13 06/27/23 02:59 Oxygen Nasal Cannula 2 lpm Comment: Diagnosis: PE, pnuemonia, uti Respiratory Therapy Assessment DAILY Comment: Diagnosis: PE, pnuemonia, uti 06/27/23 09:00 ST Screen per Nursing Assess ONCE Comment: Protocol Order Physician Instructions: Greater than [address] Admission Screening Reason For Exam: Triggered on Admission Diagnosis: PE, pnuemonia, uti CVA/Dyshpagia/Aphasia: No Cognitive Deficits: No Dehydration/Nutrition Deficit: No Reflux: No Oral-Motor Difficulties: No Pneumonia: Yes [facility] Resident: No Total Points: 5 Discharge Exam General Appearance: mild distress, alert Neurologic Exam: alert, oriented x 3, cooperative, normal mood/affect, nml cerebellar function, sensation nml, No motor deficits Eye Exam: PERRL, EOMI, eyes nml inspection Ears, Nose, Throat Exam: normal ENT inspection, pharynx normal, moist mucous membranes Neck Exam: normal inspection, non-tender, supple, full range of motion Respiratory Exam: diminished breath sounds (BLLL) Cardiovascular Exam: regular rate/rhythm, normal heart sounds Gastrointestinal/Abdomen Exam: soft, No tenderness, No mass Pelvic Exam: deferred Rectal Exam: deferred Back Exam: normal inspection, normal range of motion, No CVA tenderness, No vertebral tenderness Extremity Exam: normal inspection, normal range of motion Skin Exam: normal color, warm, dry Final Diagnosis/Problem List - Final Discharge Diagnosis/Problem (1) Pulmonary emboli Current Visit: No Status: Acute Assessment & Plan: Concern is noted for acute right heart strain based on the presenting symptoms, acute pedal edema and right pleural effusion. Plan will be for IV heparin instead of Eliquis and transfer to [facility] when bed is available. Continue oxygen at 2LPM and monitor on telemetry. Bedrest. Will defer echocardiogram completion until it can be performed at the receiving facility. - CT chest 06/26/23 IMPRESSION: 1. Large right lower lobe posterior segment parenchymal consolidation possibly due to infarct.- increased in size. 2. Moderate to gross right-sided pleural effusion- increasedin size. 3. Few linear atelectasis are noted in right upper, mid and lower lobes.- interval development. 4. Static 6.3mm soft tissue density / solid nodule seen in left lower lobe. CT at 6-12 months is advised according to The Fleischner Societypulmonary nodule recommendations. - Heparin gtt - hold Eliquis while on gtt - Morphine for pain - on 2LNC 97%- @ baseline O2 Code(s): I26.99 - OTHER PULMONARY EMBOLISM WITHOUT ACUTE COR PULMONALE (2) Pneumonia Current Visit: Yes Status: Acute Assessment & Plan: - Rocephin and azithromycin - On BL 2 lNC - Proventil - Morphine and tylenol for pain Code(s): J18.9 - PNEUMONIA, UNSPECIFIED ORGANISM (3) Pleural effusion Current Visit: Yes Status: Acute Assessment & Plan: - Lasix - 2lNC- baseline - as seen on CT Code(s): J90 - PLEURAL EFFUSION, NOT ELSEWHERE CLASSIFIED (4) Trichomonas infection Current Visit: Yes Status: Acute Assessment & Plan: - Flagyl BID PO - seen in urine (5) UTI (urinary tract infection) Current Visit: Yes Status: Acute Assessment & Plan: - UC pending - Rocephin Code(s): N39.0 - URINARY TRACT INFECTION, SITE NOT SPECIFIED (6) Hypertension Current Visit: No Status: Acute Assessment & Plan: - BP 140/103 - 2:2 right heart strain, + PE , and pneumonia - Lasix x1 ordered may help to bring down. - monitor - consider starting BP med Code(s): I10 - ESSENTIAL (PRIMARY) HYPERTENSION - Discharge Discharge Date: 06/27/23 ([place]/ [place]) Disposition: DC TO OTHER HOSP Condition: Fair Prescriptions: Continue Albuterol Sulfate [Albuterol Sulfate Hfa] 2 puffs IH QID PRN PRN PRN Reason: Shortness Of Breath Azithromycin [Azithromycin 250 mg Pack] 250 mg PO UD #6 tablet Apixaban [Eliquis] 10 mg PO BID 7 Days #14 tablet Cefpodoxime Proxetil 200 mg [Vantin 200 mg] 200 mg PO BID PRN 7 Days #14 tablet Apixaban [Eliquis] 5 mg PO BID 30 Days #60 tablet Follow up with: MATTHEW NOVAK [Primary Care Provider] -
[2023-06-27 08:24] VITALS: BP 163/102; O2SAT 98
[2023-06-27 08:34] VITALS: PULSE 105
[2023-06-27] MEDS ORDERED: Pepcid 20 MG PO SCH (10:00)
[2023-06-27] MEDS ORDERED: Acidophilus TABLET PO SCH (10:00)
[2023-06-27] MEDS ORDERED: Zithromax 500 MG/ 250 ML NaCl Premix 500 MG/250 ML IVPB IV SCH (10:00)
[2023-06-27] MEDS ORDERED: ROCEPHIN 1 Gm-D5w 50 ml Bag** 1 G/50 ML IVPB IV SCH (10:00)
[2023-06-27] MEDS ORDERED: Flagyl 500 MG PO SCH (10:00)
[2023-06-27] MEDS ORDERED: Lasix 20 MG/2 ML IV SCH (10:00)
== END 2023-06-27 08:49 ==
LOC: ED 23:42 → ICU 06-26 23:47
PROVIDERS: ADMIT Internal Medicine; ATTEND Internal Medicine
DX: I26.99 Other pulmonary embolism without acute cor pulmonale (principal); J18.9 Pneumonia, unspecified organism; J90 Pleural effusion, not elsewhere classified; N39.0 Urinary tract infection, site not specified; I10 Essential (primary) hypertension; R60.0 Localized edema; A59.9 Trichomoniasis, unspecified; Z79.01 Long term (current) use of anticoagulants; Z79.899 Other long term (current) drug therapy; Z20.828 Contact with and (suspected) exposure to other viral communicable diseases; Z99.81 Dependence on supplemental oxygen
CPT/HCPCS: 36000; 36415; 71250; 74176; 80053; 81001; 81025; 83880; 84484; 85025; 85027; 85379; 85610; 85730; 87086; 93005; 93041; 94760; 96365; 96372; 96374; 96375; 96376; 99285; G0378; Q3014; J0696; J1644; J2250; J2270; J2405; A9270-GY

== ENCOUNTER 2023-09-30 04:25 | Observation (INO) | payer MEDICARE ==
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
[2023-09-30] MEDS ORDERED: DUONEB 0.5-3 MG/3 ml Neb IH ONE (04:58)
[2023-09-30] MEDS: DUONEB 0.5-3 MG/3 ml Neb IH ONE (05:04)
[2023-09-30] MEDS ORDERED: solu-MEDROL ONE (05:07)
[2023-09-30] MEDS ORDERED: Sterile H2O 10 ml IJ ONE (05:07)
[2023-09-30] MEDS: solu-MEDROL 125 MG, Sterile H2O 10 ml 2 ML IV ONE (05:12)
[2023-09-30] MEDS: Sodium Chloride 0.9% 1000 ML 1,000 ML IV SCH (05:13)
[2023-09-30] MEDS ORDERED: ROCEPHIN 1 GM / 100 ML NaCl 1 GM/100 ML IVPB IV ONE (05:24)
[2023-09-30] MEDS ORDERED: MORPHINE SULFATE 4 MG INJ ONE (05:24)
[2023-09-30] MEDS: MORPHINE SULFATE 4 MG INJ IV ONE (05:27)
[2023-09-30] MEDS: ROCEPHIN 1 GM / 100 ML NaCl 1 GM/100 ML IVPB IV ONE (05:27)
[2023-09-30 05:31] LABS: Absolute Neutrophil Ct (ANC) 6.01 x10^3/uL (1.4-6.9); BASOPHIL % 1.1 % (0.0-0.4); Basophil (Absolute #) 0.13 x10^3/uL (0-0.4); Eosinophil % 6.4 % (0.00-5.0); Eosinophil (Absolute #) 0.75 x10^3/uL (0-0.5); Hematocrit 39.2 % (35-47); Hemoglobin 12.6 g/dL (12.0-16.0); IMMATURE GRAN # 0.02 x10^3u/L (0.00-0.03); IMMATURE GRAN % 0.2 % (0.00-0.4); Lymphocyte (Absolute #) 3.47 x10^3/uL (1.0-4.6); Lymphocytes % 29.8 % (24.0-44.0); Mean Cell Volume 78.9 fL (78-100); Mean Corpuscular Hemoglobin 25.4 pg (26-32); Mean Corpuscular Hgb Concent. 32.1 g/dL (32-36); Mean Platelet Volume 9.1 fL (7.5-11.0); Monocyte (Absolute #) 1.28 x10^3/uL (0.0-1.3); NUCLEATED RBC # 0.02 x10^3u/L (0.00-0.01); NUCLEATED RBC % 0.2 % (0.00-0.1); Neutrophil % 51.5 % (36.0-66.0); Platelet Count 530 x10^3/uL (150-450); Red Blood Count 4.97 x10^6/uL (4.1-5.4); Red Cell Distribution Width 19.7 % (11.5-14.0); White Blood Count 11.7 x10^3/uL (4.0-10.5)
[2023-09-30 06:03] LABS: VBG pH 7.45 (7.32-7.42)
[2023-09-30 06:05] LABS: VBG HCO3- 24.3 meq/L (22-28)
[2023-09-30 06:06] LABS: VBG BASE EXCESS 0.7 (-2.0-2.0)
[2023-09-30 06:07] LABS: VBG POTASSIUM 3.7 (3.5-5.1)
[2023-09-30 06:08] LABS: VBG HEMOGLOBIN 13.5
[2023-09-30 06:09] LABS: VBG CARBOXYHEMOGLOBIN 1.6 % T HGB (0.0-6.9)
[2023-09-30 06:12] LABS: INFLUENZA A NEGATIVE (NEGATIVE); INFLUENZA B NEGATIVE (NEGATIVE); RESPIRATORY SYNCTIAL VIRUS NEGATIVE (NEGATIVE); SARS-CoV-2 Xpert Express NEGATIVE (NEGATIVE)
[2023-09-30 06:23] LABS: HCG SERUM TEST NEGATIVE (NEGATIVE)
[2023-09-30 06:25] LABS: ALBUMIN 3.5 g/dL (3.5-5.0); ANION GAP 14.6 MEQ/L (5-15); BILIRUBIN,TOTAL 0.9 mg/dL (0.2-1.3); Calcium 8.6 mg/dL (8.4-10.2); Creatinine 1 0.75 mg/dL (0.52-1.04); EST GLOMERULAR FILTRATION RATE 98.8 ML/MIN; MAGNESIUM 1.8 mg/dL (1.6-2.3); Potassium 3.7 mmol/L (3.5-5.1); Total Protein 7.4 g/dL (6.3-8.2)
[2023-09-30 07:23] LABS: Appearance Clear (Clear); Bacteria None Seen /HPF (None Seen); Bilirubin Negative (Negative); Blood Negative (Negative); Epithelial Cells Few /HPF (None Seen); Glucose, Urine Negative (Negative); Hyaline Casts NONE SEEN /LPF (0-2); Ketones Negative (Negative); Leukocyte Esterase Negative (Negative); Nitrite Negative (Negative); Protein,Urine Dip Trace (Negative); RBC 0-2 /HPF (0-5); WBC 0-2 /HPF (0-5)
[2023-09-30 07:29] LABS: ADD URINE CULTURE? NO (NO)
[2023-09-30] MEDS: Zithromax 500 MG/ 250 ML NaCl Premix 500 MG/250 ML IVPB IV SCH (07:57)
--- NOTE | 2023-09-30 08:40 | XRAY ---
Indication: Short of breath. Elevated d-dimer. Multiple contiguous axial images obtained through the chest using 100 cc Isovue 370 contrast and PE protocol. Comparison: June 26, 2023 Good opacification of the pulmonary arteries. However mild respiration artifact limits evaluation of the more distal lobar and segmental branches. No obvious pulmonary embolus. Heart is now enlarged. Aorta is normal in course and caliber. No pathologic mediastinal/hilar lymphadenopathy. Dramatic worsening large right effusion with also worsening compressive atelectasis. Left lung clear again with incidental tiny left base calcified granuloma. Bony thorax intact again with minimal degenerative changes throughout spine. Limited upper abdomen again demonstrates fatty liver and tiny splenic calcified granulomas. Inferior right lobe liver demonstrates 1.7 cm hemangioma not included on previous exam. Impression: 1. Respiration artifact limits evaluation for pulmonary embolus. No obvious pulmonary embolus. 2. New cardiomegaly with marked worsening right effusion. 2. Chronic findings including degenerative spondylosis, fatty liver, hepatic hemangioma, and old granulomatous disease.
--- NOTE | 2023-09-30 08:42 | XRAY ---
Indication: Short of breath. Comparison: September 26, 2023 Portable apical lordotic chest demonstrates worsening moderate right infiltrate/atelectasis/effusion. Heart is borderline enlarged. No new cardiopulmonary abnormalities.
[2023-09-30] MEDS ORDERED: VENTOLIN COMMON CANISTER IH PRN (10:29)
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
[2023-09-30] MEDS: ULTRAM 50 MG PO SCH (10:54)
[2023-09-30] MEDS: Lasix 40 MG PO SCH (10:54)
[2023-09-30 11:22] VITALS: BP 135/80; PULSE 109; RESP 20; TEMP 96.8; O2SAT 96
[2023-09-30 11:35] LABS: INR 1.13 (0.8-3.0); PROTIME 12.2 SECONDS (9.4-12.5)
--- NOTE | 2023-09-30 12:49 | XRAY ---
Indication: Right pleural fluid. Procedure was performed bedside. Informed consent obtained. Initial ultrasound of the right back performed for localization. Largest pocket lower chest. The right back was prepped and draped in sterile fashion. 1% lidocaine plain was used for local anesthesia. Tiny skin incision made. 5 [place] paracentesis needle/catheter was then percutaneously inserted. Once fluid was aspirating, the outer catheter was then advanced with the inner needle removed. Catheter was connected to a Vacutainer. Approximately 1.4 L of brown tea colored fluid aspirated and was disposed of properly. Approximately 50 cc was collected and sent to laboratory for analysis as ordered by the clinician. Repeat sonogram demonstrates near complete aspiration. Catheter removed. Hemostasis achieved using digital pressure over the puncture site. Band-Aid applied over the puncture site. Postthoracentesis chest radiograph pending. Impression: Technically successful ultrasound guided right thoracentesis for both diagnostic and therapeutic purpose. No immediate complications or blood loss.
[2023-09-30 13:15] LABS: BODY FLUID CELL COUNT RBC 0.011 x10^6u/L; BODY FLUID CELL COUNT WBC 5.251 x10^3u/L
--- NOTE | 2023-09-30 13:21 | XRAY ---
Indication: Status post right thoracentesis. Comparison: Taken earlier in the day. Portable chest obtained in expiration demonstrates diminished right effusion consistent with recent thoracentesis. No pneumothorax. Heart remains enlarged and left lung grossly clear.
[2023-09-30 13:22] LABS: BF-COLOR XANTHROCHORMIC (COLORLESS)
[2023-09-30 13:23] LABS: BF CLARITY CLOUDY (CLEAR); BF SPECIMEN TYPE PLEURAL
[2023-09-30 16:40] LABS: Barbiturate,Urine NEGATIVE (NEGATIVE); Benzodiazepine,Urine NEGATIVE (NEGATIVE); Cocaine,Urine NEGATIVE (NEGATIVE); Methadone,Urine NEGATIVE (NEGATIVE); Opiate,Urine POSITIVE (NEGATIVE); PCP,Urine NEGATIVE (NEGATIVE); THC,Urine NEGATIVE (NEGATIVE)
[2023-09-30] MEDS ORDERED: Lasix 40 MG/4 ML IV SCH (17:00)
[2023-09-30 17:12] LABS: Amphetamine,Urine POSITIVE (NEGATIVE)
--- NOTE | 2023-09-30 18:03 | PCM.DS ---
Discharge Summary Date of Admission: 09/30/23 09:19 Date of Discharge: 09/30/23 Admitting Physician: NILS HARTLEY MD Primary Care Provider: MATTHEW LUU Allergies Allergies latex Allergy (Verified 09/30/23 04:27) povidone-iodine [From Betadine] Allergy (Verified 09/30/23 07:12) Patient is allergic to BETADINE soap [From Betadine] Allergy (Verified 09/30/23 04:27) Hospital Summary - Hospital Course Hospital Course: is a 48 year old female with PMHX of cardiac cath, PE on eliquis, and morbid obesity. She does have O2 PRN she wears at home. Pt reports she came to the ER today for shortness of breath, and woke up like this around 3:30 a.m. Pt was diagnosed with pneumonia on 09/26/[address] 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 She had been taking Levaquin OP. Lungs guerra diminished BLLL. Pt c/o R lower lung pain when taking a deep breath in. Per CT results she does have a right pleural effusion. Thoracentesis ordered with labs. Pt c/o dry, non prod cough. She is now on 3LNC with an O2 sat of 95%. In ER she received albuterol/atrovent treatment, IVF, and antibiotics. Antibiotics stopped as procal negative. BNP 2059, + CHF exacerbation. Lasix started BID. Echo ordered. Pt reports she last took Eliquis yesterday morning. She has a hx of PE x2, September 2022 and Jun 2023. She is c/o pain but refusing tramadol. After thoracentesis today pt decided she wanted to go home as she felt uncomfortable here. Discussed with nurse to advise pt to stay and it would not be safe as she continues to be SOB with increased oxygen requirement. As well as post op procedure. Discussed possible side effects including risk of . Pt explained did not care and if we were not going to give her IV pain medication she was going home. Pt signed out AMA. Pt's UDS was + for amphetamines. She is not prescribed any of these meds. - Vitals & Intake/Output Vital Signs: Vital Signs Temperature 96.8 F 09/30/23 11:21 Pulse Rate 109 H 09/30/23 11:21 Respiratory Rate 20 09/30/23 11:21 Blood Pressure 135/80 09/30/23 11:21 O2 Sat by Pulse Oximetry 96 09/30/23 11:21 Intake & Output: Intake & Output 09/28/23 09/29/23 09/30/23 10/01/23 11:59 11:59 11:59 11:59 Intake Total 0 Balance 0 Weight 130.6 kg - Lab Result Diagrams: 09/30/23 05:00 09/30/23 05:00 Lab Results-Last 24 Hrs: Lab Results-Last 24 Hours 09/30/23 09/30/23 09/30/23 Range/Units 05:00 05:00 05:00 Specimen Type WBC 11.7 H (4.0-10.5) x10^3/uL RBC 4.97 (4.1-5.4) x10^6/uL Hgb 12.6 (12.0-16.0) g/dL Hct 39.2 (35-47) % MCV 78.9 (78-100) fL MCH 25.4 L (26-32) pg MCHC 32.1 (32-36) g/dL RDW 19.7 H (11.5-14.0) % Plt Count 530 H (150-450) x10^3/uL MPV 9.1 (7.5-11.0) fL Gran % 51.5 (36.0-66.0) % Immature Gran % (Auto) 0.2 (0.00-0.4) % Nucleat RBC Rel Count 0.2 H (0.00-0.1) % Eos # (Auto) 0.75 H (0-0.5) x10^3/uL Immature Gran # (Auto) 0.02 (0.00-0.03) x10^3u/L Absolute Lymphs (auto) 3.47 (1.0-4.6) x10^3/uL Absolute Monos (auto) 1.28 (0.0-1.3) x10^3/uL Absolute Nucleated RBC 0.02 H (0.00-0.01) x10^3u/L Lymphocytes % 29.8 (24.0-44.0) % Monocytes % 11.0 (0.0-12.0) % Eosinophils % 6.4 H (0.00-5.0) % Basophils % 1.1 (0.0-0.4) % Absolute Granulocytes 6.01 (1.4-6.9) x10^3/uL Basophils # 0.13 (0-0.4) x10^3/uL PT (9.4-12.5) SECONDS INR (0.8-3.0) D-Dimer (0.0-0.50) mg/L pO2/FiO2 Ratio % VBG pH (7.32-7.42) VBG pCO2 at Pat Temp (42-55) mm/Hg VBG pO2 at Pat Temp (25-40) mm/Hg VBG HCO3 (22-28) meq/L VBG O2 Sat ([place]) (95-100) VBG Base Excess (-2.0-2.0) VBG Hemoglobin VBG Carboxyhemoglobin (0.0-6.9) % T HGB POC Potassium (3.5-5.1) Sodium 138 (135-145) mmol/L Potassium 3.7 (3.5-5.1) mmol/L Chloride 108 H (98-107) mmol/L Carbon Dioxide 20 L (22-30) mmol/L Anion Gap 14.6 (5-15) MEQ/L BUN 19 H (7-17) mg/dL Creatinine 0.75 (0.52-1.04) mg/dL Estimated GFR 98.8 ML/MIN Glucose 96 (74-106) mg/dL Lactic Acid 1.9 (0.4-2.0) Calcium 8.6 (8.4-10.2) mg/dL Magnesium 1.8 (1.6-2.3) mg/dL Total Bilirubin 0.90 (0.2-1.3) mg/dL AST 25 (14-36) U/L ALT 19 (0-35) U/L Alkaline Phosphatase 260 H (38-126) U/L Troponin I (0.000-0.033) ng/mL NT-Pro-B Natriuret Pep 2060 (<300) pg/mL Serum Total Protein 7.4 (6.3-8.2) g/dL Albumin 3.5 (3.5-5.0) g/dL Procalcitonin (0.030-0.080) ng/mL Serum HCG, Qual (NEGATIVE) Urine Color (Yellow) Urine Appearance (Clear) Urine pH (4.6-8.0) Ur Specific [place] (1.005-1.030) Urine Protein (Negative) Urine Glucose (UA) (Negative) mg/dL Urine Ketones (Negative) Urine Blood (Negative) Urine Nitrite (Negative) Urine Bilirubin (Negative) Urine Urobilinogen (0.2) mg/dL Ur Leukocyte Esterase (Negative) U Hyaline Cast (Auto) (0-2) /LPF Urine Microscopic RBC (0-5) /HPF Urine Microscopic WBC (0-5) /HPF Ur Epithelial Cells (None Seen) /HPF Urine Bacteria (None Seen) /HPF Urine Culture Reflexed (NO) Fluid Color (COLORLESS) Fluid Clarity (CLEAR) Fluid WBC (Auto) x10^3u/L Fluid RBC (Auto) x10^6u/L Fld Polynuclear WBCs % % Fl Mononuclear % Auto % Urine Opiates Level (NEGATIVE) Ur Methadone (NEGATIVE) Urine Barbiturates (NEGATIVE) Ur Phencyclidine (PCP) (NEGATIVE) Urine Amphetamine (NEGATIVE) U Benzodiazepine Level (NEGATIVE) Urine Cocaine (NEGATIVE) Urine Marijuana (THC) (NEGATIVE) Influenza Type A Ag (NEGATIVE) Influenza Type B Ag (NEGATIVE) RSV (PCR) (NEGATIVE) SARS-CoV-2 (PCR) (NEGATIVE) 09/30/23 09/30/23 09/30/23 Range/Units 05:00 05:00 05:00 Specimen Type WBC (4.0-10.5) x10^3/uL RBC (4.1-5.4) x10^6/uL Hgb (12.0-16.0) g/dL Hct (35-47) % MCV (78-100) fL MCH (26-32) pg MCHC (32-36) g/dL RDW (11.5-14.0) % Plt Count (150-450) x10^3/uL MPV (7.5-11.0) fL Gran % (36.0-66.0) % Immature Gran % (Auto) (0.00-0.4) % Nucleat RBC Rel Count (0.00-0.1) % Eos # (Auto) (0-0.5) x10^3/uL Immature Gran # (Auto) (0.00-0.03) x10^3u/L Absolute Lymphs (auto) (1.0-4.6) x10^3/uL Absolute Monos (auto) (0.0-1.3) x10^3/uL Absolute Nucleated RBC (0.00-0.01) x10^3u/L Lymphocytes % (24.0-44.0) % Monocytes % (0.0-12.0) % Eosinophils % (0.00-5.0) % Basophils % (0.0-0.4) % Absolute Granulocytes (1.4-6.9) x10^3/uL Basophils # (0-0.4) x10^3/uL PT (9.4-12.5) SECONDS INR (0.8-3.0) D-Dimer 4.27 H* (0.0-0.50) mg/L pO2/FiO2 Ratio 28.0 % VBG pH 7.45 H (7.32-7.42) VBG pCO2 at Pat Temp 35 L (42-55) mm/Hg VBG pO2 at Pat Temp 42 H (25-40) mm/Hg VBG HCO3 24.3 (22-28) meq/L VBG O2 Sat ([place]) 69.0 L (95-100) VBG Base Excess 0.7 (-2.0-2.0) VBG Hemoglobin 13.5 VBG Carboxyhemoglobin 1.6 (0.0-6.9) % T HGB POC Potassium 3.7 (3.5-5.1) Sodium (135-145) mmol/L Potassium (3.5-5.1) mmol/L Chloride (98-107) mmol/L Carbon Dioxide (22-30) mmol/L Anion Gap (5-15) MEQ/L BUN (7-17) mg/dL Creatinine (0.52-1.04) mg/dL Estimated GFR ML/MIN Glucose (74-106) mg/dL Lactic Acid (0.4-2.0) Calcium (8.4-10.2) mg/dL Magnesium (1.6-2.3) mg/dL Total Bilirubin (0.2-1.3) mg/dL AST (14-36) U/L ALT (0-35) U/L Alkaline Phosphatase (38-126) U/L Troponin I < 0.012 (0.000-0.033) ng/mL NT-Pro-B Natriuret Pep (<300) pg/mL Serum Total Protein (6.3-8.2) g/dL Albumin (3.5-5.0) g/dL Procalcitonin (0.030-0.080) ng/mL Serum HCG, Qual (NEGATIVE) Urine Color (Yellow) Urine Appearance (Clear) Urine pH (4.6-8.0) Ur Specific [place] (1.005-1.030) Urine Protein (Negative) Urine Glucose (UA) (Negative) mg/dL Urine Ketones (Negative) Urine Blood (Negative) Urine Nitrite (Negative) Urine Bilirubin (Negative) Urine Urobilinogen (0.2) mg/dL Ur Leukocyte Esterase (Negative) U Hyaline Cast (Auto) (0-2) /LPF Urine Microscopic RBC (0-5) /HPF Urine Microscopic WBC (0-5) /HPF Ur Epithelial Cells (None Seen) /HPF Urine Bacteria (None Seen) /HPF Urine Culture Reflexed (NO) Fluid Color (COLORLESS) Fluid Clarity (CLEAR) Fluid WBC (Auto) x10^3u/L Fluid RBC (Auto) x10^6u/L Fld Polynuclear WBCs % % Fl Mononuclear % Auto % Urine Opiates Level (NEGATIVE) Ur Methadone (NEGATIVE) Urine Barbiturates (NEGATIVE) Ur Phencyclidine (PCP) (NEGATIVE) Urine Amphetamine (NEGATIVE) U Benzodiazepine Level (NEGATIVE) Urine Cocaine (NEGATIVE) Urine Marijuana (THC) (NEGATIVE) Influenza Type A Ag (NEGATIVE) Influenza Type B Ag (NEGATIVE) RSV (PCR) (NEGATIVE) SARS-CoV-2 (PCR) (NEGATIVE) 09/30/23 09/30/23 09/30/23 Range/Units 05:00 05:20 05:57 Specimen Type WBC (4.0-10.5) x10^3/uL RBC (4.1-5.4) x10^6/uL Hgb (12.0-16.0) g/dL Hct (35-47) % MCV (78-100) fL MCH (26-32) pg MCHC (32-36) g/dL RDW (11.5-14.0) % Plt Count (150-450) x10^3/uL MPV (7.5-11.0) fL Gran % (36.0-66.0) % Immature Gran % (Auto) (0.00-0.4) % Nucleat RBC Rel Count (0.00-0.1) % Eos # (Auto) (0-0.5) x10^3/uL Immature Gran # (Auto) (0.00-0.03) x10^3u/L Absolute Lymphs (auto) (1.0-4.6) x10^3/uL Absolute Monos (auto) (0.0-1.3) x10^3/uL Absolute Nucleated RBC (0.00-0.01) x10^3u/L Lymphocytes % (24.0-44.0) % Monocytes % (0.0-12.0) % Eosinophils % (0.00-5.0) % Basophils % (0.0-0.4) % Absolute Granulocytes (1.4-6.9) x10^3/uL Basophils # (0-0.4) x10^3/uL PT 12.2 (9.4-12.5) SECONDS INR 1.13 (0.8-3.0) D-Dimer (0.0-0.50) mg/L pO2/FiO2 Ratio % VBG pH (7.32-7.42) VBG pCO2 at Pat Temp (42-55) mm/Hg VBG pO2 at Pat Temp (25-40) mm/Hg VBG HCO3 (22-28) meq/L VBG O2 Sat ([place]) (95-100) VBG Base Excess (-2.0-2.0) VBG Hemoglobin VBG Carboxyhemoglobin (0.0-6.9) % T HGB POC Potassium (3.5-5.1) Sodium (135-145) mmol/L Potassium (3.5-5.1) mmol/L Chloride (98-107) mmol/L Carbon Dioxide (22-30) mmol/L Anion Gap (5-15) MEQ/L BUN (7-17) mg/dL Creatinine (0.52-1.04) mg/dL Estimated GFR ML/MIN Glucose (74-106) mg/dL Lactic Acid (0.4-2.0) Calcium (8.4-10.2) mg/dL Magnesium (1.6-2.3) mg/dL Total Bilirubin (0.2-1.3) mg/dL AST (14-36) U/L ALT (0-35) U/L Alkaline Phosphatase (38-126) U/L Troponin I (0.000-0.033) ng/mL NT-Pro-B Natriuret Pep (<300) pg/mL Serum Total Protein (6.3-8.2) g/dL Albumin (3.5-5.0) g/dL Procalcitonin (0.030-0.080) ng/mL Serum HCG, Qual NEGATIVE (NEGATIVE) Urine Color (Yellow) Urine Appearance (Clear) Urine pH (4.6-8.0) Ur Specific [place] (1.005-1.030) Urine Protein (Negative) Urine Glucose (UA) (Negative) mg/dL Urine Ketones (Negative) Urine Blood (Negative) Urine Nitrite (Negative) Urine Bilirubin (Negative) Urine Urobilinogen (0.2) mg/dL Ur Leukocyte Esterase (Negative) U Hyaline Cast (Auto) (0-2) /LPF Urine Microscopic RBC (0-5) /HPF Urine Microscopic WBC (0-5) /HPF Ur Epithelial Cells (None Seen) /HPF Urine Bacteria (None Seen) /HPF Urine Culture Reflexed (NO) Fluid Color (COLORLESS) Fluid Clarity (CLEAR) Fluid WBC (Auto) x10^3u/L Fluid RBC (Auto) x10^6u/L Fld Polynuclear WBCs % % Fl Mononuclear % Auto % Urine Opiates Level (NEGATIVE) Ur Methadone (NEGATIVE) Urine Barbiturates (NEGATIVE) Ur Phencyclidine (PCP) (NEGATIVE) Urine Amphetamine (NEGATIVE) U Benzodiazepine Level (NEGATIVE) Urine Cocaine (NEGATIVE) Urine Marijuana (THC) (NEGATIVE) Influenza Type A Ag NEGATIVE (NEGATIVE) Influenza Type B Ag NEGATIVE (NEGATIVE) RSV (PCR) NEGATIVE (NEGATIVE) SARS-CoV-2 (PCR) NEGATIVE (NEGATIVE) 09/30/23 09/30/23 09/30/23 Range/Units 07:13 09:50 09:50 Specimen Type WBC (4.0-10.5) x10^3/uL RBC (4.1-5.4) x10^6/uL Hgb (12.0-16.0) g/dL Hct (35-47) % MCV (78-100) fL MCH (26-32) pg MCHC (32-36) g/dL RDW (11.5-14.0) % Plt Count (150-450) x10^3/uL MPV (7.5-11.0) fL Gran % (36.0-66.0) % Immature Gran % (Auto) (0.00-0.4) % Nucleat RBC Rel Count (0.00-0.1) % Eos # (Auto) (0-0.5) x10^3/uL Immature Gran # (Auto) (0.00-0.03) x10^3u/L Absolute Lymphs (auto) (1.0-4.6) x10^3/uL Absolute Monos (auto) (0.0-1.3) x10^3/uL Absolute Nucleated RBC (0.00-0.01) x10^3u/L Lymphocytes % (24.0-44.0) % Monocytes % (0.0-12.0) % Eosinophils % (0.00-5.0) % Basophils % (0.0-0.4) % Absolute Granulocytes (1.4-6.9) x10^3/uL Basophils # (0-0.4) x10^3/uL PT (9.4-12.5) SECONDS INR (0.8-3.0) D-Dimer (0.0-0.50) mg/L pO2/FiO2 Ratio % VBG pH (7.32-7.42) VBG pCO2 at Pat Temp (42-55) mm/Hg VBG pO2 at Pat Temp (25-40) mm/Hg VBG HCO3 (22-28) meq/L VBG O2 Sat ([place]) (95-100) VBG Base Excess (-2.0-2.0) VBG Hemoglobin VBG Carboxyhemoglobin (0.0-6.9) % T HGB POC Potassium (3.5-5.1) Sodium (135-145) mmol/L Potassium (3.5-5.1) mmol/L Chloride (98-107) mmol/L Carbon Dioxide (22-30) mmol/L Anion Gap (5-15) MEQ/L BUN (7-17) mg/dL Creatinine (0.52-1.04) mg/dL Estimated GFR ML/MIN Glucose (74-106) mg/dL Lactic Acid (0.4-2.0) Calcium (8.4-10.2) mg/dL Magnesium (1.6-2.3) mg/dL Total Bilirubin (0.2-1.3) mg/dL AST (14-36) U/L ALT (0-35) U/L Alkaline Phosphatase (38-126) U/L Troponin I < 0.012 (0.000-0.033) ng/mL NT-Pro-B Natriuret Pep (<300) pg/mL Serum Total Protein (6.3-8.2) g/dL Albumin (3.5-5.0) g/dL Procalcitonin 0.073 (0.030-0.080) ng/mL Serum HCG, Qual (NEGATIVE) Urine Color Yellow (Yellow) Urine Appearance Clear (Clear) Urine pH 5.0 (4.6-8.0) Ur Specific [place] 1.020 (1.005-1.030) Urine Protein Trace A (Negative) Urine Glucose (UA) Negative (Negative) mg/dL Urine Ketones Negative (Negative) Urine Blood Negative (Negative) Urine Nitrite Negative (Negative) Urine Bilirubin Negative (Negative) Urine Urobilinogen 1.0 A (0.2) mg/dL Ur Leukocyte Esterase Negative (Negative) U Hyaline Cast (Auto) NONE SEEN (0-2) /LPF Urine Microscopic RBC 0-2 (0-5) /HPF Urine Microscopic WBC 0-2 (0-5) /HPF Ur Epithelial Cells Few (None Seen) /HPF Urine Bacteria None Seen (None Seen) /HPF Urine Culture Reflexed NO (NO) Fluid Color (COLORLESS) Fluid Clarity (CLEAR) Fluid WBC (Auto) x10^3u/L Fluid RBC (Auto) x10^6u/L Fld Polynuclear WBCs % % Fl Mononuclear % Auto % Urine Opiates Level (NEGATIVE) Ur Methadone (NEGATIVE) Urine Barbiturates (NEGATIVE) Ur Phencyclidine (PCP) (NEGATIVE) Urine Amphetamine (NEGATIVE) U Benzodiazepine Level (NEGATIVE) Urine Cocaine (NEGATIVE) Urine Marijuana (THC) (NEGATIVE) Influenza Type A Ag (NEGATIVE) Influenza Type B Ag (NEGATIVE) RSV (PCR) (NEGATIVE) SARS-CoV-2 (PCR) (NEGATIVE) 09/30/23 09/30/23 09/30/23 Range/Units 13:18 Unknown Unknown Specimen Type PLEURAL WBC (4.0-10.5) x10^3/uL RBC (4.1-5.4) x10^6/uL Hgb (12.0-16.0) g/dL Hct (35-47) % MCV (78-100) fL MCH (26-32) pg MCHC (32-36) g/dL RDW (11.5-14.0) % Plt Count (150-450) x10^3/uL MPV (7.5-11.0) fL Gran % (36.0-66.0) % Immature Gran % (Auto) (0.00-0.4) % Nucleat RBC Rel Count (0.00-0.1) % Eos # (Auto) (0-0.5) x10^3/uL Immature Gran # (Auto) (0.00-0.03) x10^3u/L Absolute Lymphs (auto) (1.0-4.6) x10^3/uL Absolute Monos (auto) (0.0-1.3) x10^3/uL Absolute Nucleated RBC (0.00-0.01) x10^3u/L Lymphocytes % (24.0-44.0) % Monocytes % (0.0-12.0) % Eosinophils % (0.00-5.0) % Basophils % (0.0-0.4) % Absolute Granulocytes (1.4-6.9) x10^3/uL Basophils # (0-0.4) x10^3/uL PT (9.4-12.5) SECONDS INR (0.8-3.0) D-Dimer (0.0-0.50) mg/L pO2/FiO2 Ratio % VBG pH (7.32-7.42) VBG pCO2 at Pat Temp (42-55) mm/Hg VBG pO2 at Pat Temp (25-40) mm/Hg VBG HCO3 (22-28) meq/L VBG O2 Sat ([place]) (95-100) VBG Base Excess (-2.0-2.0) VBG Hemoglobin VBG Carboxyhemoglobin (0.0-6.9) % T HGB POC Potassium (3.5-5.1) Sodium (135-145) mmol/L Potassium (3.5-5.1) mmol/L Chloride (98-107) mmol/L Carbon Dioxide (22-30) mmol/L Anion Gap (5-15) MEQ/L BUN (7-17) mg/dL Creatinine (0.52-1.04) mg/dL Estimated GFR ML/MIN Glucose (74-106) mg/dL Lactic Acid (0.4-2.0) Calcium (8.4-10.2) mg/dL Magnesium (1.6-2.3) mg/dL Total Bilirubin (0.2-1.3) mg/dL AST (14-36) U/L ALT (0-35) U/L Alkaline Phosphatase (38-126) U/L Troponin I < 0.012 (0.000-0.033) ng/mL NT-Pro-B Natriuret Pep (<300) pg/mL Serum Total Protein (6.3-8.2) g/dL Albumin (3.5-5.0) g/dL Procalcitonin (0.030-0.080) ng/mL Serum HCG, Qual (NEGATIVE) Urine Color (Yellow) Urine Appearance (Clear) Urine pH (4.6-8.0) Ur Specific [place] (1.005-1.030) Urine Protein (Negative) Urine Glucose (UA) (Negative) mg/dL Urine Ketones (Negative) Urine Blood (Negative) Urine Nitrite (Negative) Urine Bilirubin (Negative) Urine Urobilinogen (0.2) mg/dL Ur Leukocyte Esterase (Negative) U Hyaline Cast (Auto) (0-2) /LPF Urine Microscopic RBC (0-5) /HPF Urine Microscopic WBC (0-5) /HPF Ur Epithelial Cells (None Seen) /HPF Urine Bacteria (None Seen) /HPF Urine Culture Reflexed (NO) Fluid Color XANTHROCHORMIC A (COLORLESS) Fluid Clarity CLOUDY A (CLEAR) Fluid WBC (Auto) 5.251 x10^3u/L Fluid RBC (Auto) 0.011 x10^6u/L Fld Polynuclear WBCs % 67.600 % Fl Mononuclear % Auto 32.400 % Urine Opiates Level POSITIVE A (NEGATIVE) Ur Methadone NEGATIVE (NEGATIVE) Urine Barbiturates NEGATIVE (NEGATIVE) Ur Phencyclidine (PCP) NEGATIVE (NEGATIVE) Urine Amphetamine POSITIVE A (NEGATIVE) U Benzodiazepine Level NEGATIVE (NEGATIVE) Urine Cocaine NEGATIVE (NEGATIVE) Urine Marijuana (THC) NEGATIVE (NEGATIVE) Influenza Type A Ag (NEGATIVE) Influenza Type B Ag (NEGATIVE) RSV (PCR) (NEGATIVE) SARS-CoV-2 (PCR) (NEGATIVE) - Radiology Exams Ordered Rad Exams-Entire Visit: Radiology Procedures Category Date Time Status CHEST 1 VIEW (PORTABLE) Stat Exams 09/30/23 05:00 Completed CHEST 1 VIEW (PORTABLE) Stat Exams 09/30/23 12:43 Completed CHEST WITH CONTRAST [CT] Stat Exams 09/30/23 06:50 Completed ECHO W/2D AND DOPPLER [US] Routine Exams 09/30/23 10:16 Taken THORACENTESIS [US] Routine Exams 09/30/23 10:19 Completed - Procedures and Test Procedures and Tests throughout Hospitalization: Therapy Orders & Screens 09/30/23 05:17 Respiratory Therapy Assessment DAILY Comment: 09/30/23 09:44 RT Screen per Nursing Assess ONCE Comment: Protocol Order Physician Instructions: Greater than 3 points order RT Admission Screen Reason For Exam: Triggered on Admission Diagnosis: PLEURAL EFFUSION Diagnosis: PLEURAL EFFUSION Pneumonia: Yes Home O2: Yes: doesnt use Asthma: No CHF: No Home CPAP/BIPAP: No Home Nebs/MDI: No Total Points: 8 ST Screen per Nursing Assess ONCE Comment: Protocol Order Physician Instructions: Greater than [address] Admission Screening Reason For Exam: Triggered on Admission Diagnosis: PLEURAL EFFUSION CVA/Dyshpagia/Aphasia: No Cognitive Deficits: No Dehydration/Nutrition Deficit: No Reflux: No Oral-Motor Difficulties: No Pneumonia: Yes Assisted Resident: No Total Points: 5 09/30/23 14:30 Oxygen Nasal Cannula 3 lpm Comment: Diagnosis: PLEURAL EFFUSION, CHF Discharge Exam General Appearance: no apparent distress (left AMA), alert Neurologic Exam: alert, oriented x 3, cooperative, normal mood/affect, nml cerebellar function, sensation nml, No motor deficits Eye Exam: PERRL, EOMI, eyes nml inspection Ears, Nose, Throat Exam: normal ENT inspection, pharynx normal, moist mucous membranes Neck Exam: normal inspection, non-tender, supple, full range of motion Respiratory Exam: normal breath sounds, lungs clear, No respiratory distress Cardiovascular Exam: regular rate/rhythm, normal heart sounds Gastrointestinal/Abdomen Exam: soft, No tenderness, No mass Pelvic Exam: deferred Rectal Exam: deferred Back Exam: normal inspection, normal range of motion, No CVA tenderness, No vertebral tenderness Extremity Exam: normal inspection, normal range of motion Skin Exam: normal color, warm, dry Final Diagnosis/Problem List - Final Discharge Diagnosis/Problem (1) Pleural effusion Status: Acute Code(s): J90 - PLEURAL EFFUSION, NOT ELSEWHERE CLASSIFIED (2) CHF exacerbation Status: Acute Code(s): I50.9 - HEART FAILURE, UNSPECIFIED (3) Morbid obesity with BMI of 45.0-49.9, adult Status: Acute Code(s): E66.01 - MORBID (SEVERE) OBESITY DUE TO EXCESS CALORIE S; Z68.42 - BODY MASS INDEX [BMI] 45.0-49.9, ADULT (4) Hx pulmonary embolism Status: Acute Code(s): Z86.711 - PERSONAL HISTORY OF PULMONARY EMBOLISM (5) Tachycardia Status: Acute Assessment & Plan: Pt left AMA 1) Pleural effusion Current Visit: Yes Status: Acute Assessment & Plan: - CT chest 09/30/23 Impression: 1. Respiration artifact limits evaluation for pulmonary embolus. No obvious pulmonary embolus. 2. New cardiomegaly with marked worsening right effusion. 2. Chronic findings including degenerative spondylosis, fatty liver, hepatic hemangioma, and old granulomatous disease. - US guided thoracentesis with labs - Pt last took Eliquis yesterday - on 3lNC @ 95%- BL 2lNC PRN - PT/INR Code(s): J90 - PLEURAL EFFUSION, NOT ELSEWHERE CLASSIFIED (2) CHF exacerbation Current Visit: Yes Status: Acute Assessment & Plan: - Echo from 10/16/23- Ef 80% IMPRESSION: 1) SEVERE PULMONARY HYPERTENSION. 2) MODERATE TRICUSPID REGURGITATION. 3) MODERATE PULMONIC REGURGITATION. 4) RIGHT VENTRICULAR DILATATION. 5) RIGHT VENTRICULAR SYSTOLIC DYSFUNCTION. 6) MODERATE PULMONIC REGURGITATION. 7) POSSIBLE IMPAIRED LEFT VENTRICULAR RELAXATION. 8) MILD LEFT VENTRICULAR HYPERTROPHY. - Has not seen Dr. Dyson in over 2 years - Left and right sided heart failure - +3 pitting edema - 3LNC- O2 95% - Baseline O2 2lNC PRN - echo pending - Lasix 40 BID IV Code(s): I50.9 - HEART FAILURE, UNSPECIFIED (3) Morbid obesity with BMI of 45.0-49.9, adult Current Visit: Yes Status: Acute Assessment & Plan: - advised diet and exercise control - cardiac/ low Na+ diet when not NPO for procedure Code(s): E66.01 - MORBID (SEVERE) OBESITY DUE TO EXCESS CALORIES; Z68.42 - BODY MASS INDEX [BMI] 45.0-49.9, ADULT (4) Hx pulmonary embolism Current Visit: Yes Status: Acute Assessment & Plan: - Eliquis last taken 4/7 in the AM - Held for procedure today - SCD's Code(s): Z86.711 - PERSONAL HISTORY OF PULMONARY EMBOLISM (5) Tachycardia Current Visit: No Status: Acute Assessment & Plan: - 2:2 CHF and Pleural effusion - tele Code(s): R00.0 - TACHYCARDIA, UNSPECIFIED (6) Drug abuse Status: Acute Assessment & Plan: - UDS + for amphetamines - She is is not prescribed any of these meds. Code(s): F19.10 - OTHER PSYCHOACTIVE SUBSTANCE ABUSE, UNCOMPLICATED - Discharge Discharge Date: 09/30/23 Disposition: Against Medical Advice Condition: Fair Prescriptions: Continue Albuterol Sulfate [Albuterol Sulfate Hfa] 2 puffs IH QID PRN PRN PRN Reason: Shortness Of Breath Apixaban [Eliquis] 5 mg PO DAILY Furosemide 40 mg PO DAILY Tramadol HCl 50 mg [Ultram 50 mg] 1 tab PO BID Discontinued levoFLOXacin [Levofloxacin] 750 mg PO DAILY Follow up with: MATTHEW LUU [Primary Care Provider] -
--- NOTE | 2023-10-01 15:08 | ECHO ---
DATE OF PROCEDURE: 09/30/2023 CLINICAL INFORMATION: Congestive heart failure exacerbation. The M-mode 2D, and Doppler echocardiogram including color flow Doppler shows the left ventricle is normal in size. There is mild concentric left ventricular hypertrophy. The left ventricular systolic function is at the lower limits of normal. The ejection fraction is calculated to be 51%. The heart rate is 103 beats/minute. The right ventricle is dilated with severe right ventricular systolic dysfunction. The left atrium is normal in size. The interatrial septum is intact. The right atrium is dilated. The aortic valve opens well. There is mitral valve leaflet thickening. There is moderate to severe tricuspid regurgitation. There is severe pulmonary hypertension. The right ventricular systolic pressure is calculated to be 97 mm of Mercury. The pulmonic valve is not well visualized. There is mild pulmonic regurgitation. The aortic root is normal. There is no pericardial effusion present. IMPRESSION: 1) LOW NORMAL CONTRACTILITY OF THE LEFT VENTRICLE. 2) TACHYCARDIA. 3) DILATED RIGHT VENTRICLE WITH SEVERE RIGHT VENTRICULAR SYSTOLIC DYSFUNCTION. 4) DILATED RIGHT ATRIUM. 5) MODERATE TO SEVERE TRICUSPID REGURGITATION. 6) SEVERE PULMONARY HYPERTENSION. 7) MILD PULMONIC REGURGITATION.
== END 2023-09-30 16:13 | disposition left against medical advice (07) ==
LOC: ED 04:25 → MED SURG 09:19 → INTOOBSV 09:19
PROVIDERS: ADMIT Internal Medicine; ATTEND Internal Medicine
DX: J90 Pleural effusion, not elsewhere classified (principal); I11.0 Hypertensive heart disease with heart failure; I50.9 Heart failure, unspecified; E66.01 Morbid (severe) obesity due to excess calories; Z68.42 Body mass index [BMI] 45.0-49.9, adult; Z86.711 Personal history of pulmonary embolism; R00.0 Tachycardia, unspecified; F15.90 Other stimulant use, unspecified, uncomplicated; Z79.899 Other long term (current) drug therapy; Z79.01 Long term (current) use of anticoagulants
CPT/HCPCS: 0241U; 32555; 36000; 36415; 71045; 71260; 80053; 80307; 81001; 82805; 82945; 83605; 83615; 83735; 83880; 83986; 84145; 84157; 84484; 84703; 85025; 85305; 85379; 85610; 87040; 87070; 87075; 87205; 89051; 93005; 93041; 93306; 94640; 94760; 94762; 96374; 96375; 99291; 93268; 96365; 96367; 99285; J0456; J0696; J2270; J2930; Q3014; A9270-GY; G0378

== ENCOUNTER 2023-10-05 09:56 | Emergency (ER) | payer MEDICARE ==
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
[2023-10-05] MEDS ORDERED: DUONEB 0.5-3 MG/3 ml Neb IH ONE (10:12)
[2023-10-05] MEDS: DUONEB 0.5-3 MG/3 ml Neb IH ONE (10:14)
[2023-10-05 10:26] VITALS: TEMP 95.6
[2023-10-05 10:40] LABS: Absolute Neutrophil Ct (ANC) 8.52 x10^3/uL (1.4-6.9); BASOPHIL % 0.6 % (0.0-0.4); Basophil (Absolute #) 0.08 x10^3/uL (0-0.4); Eosinophil % 3.5 % (0.00-5.0); Eosinophil (Absolute #) 0.49 x10^3/uL (0-0.5); Hematocrit 42.8 % (35-47); Hemoglobin 13.4 g/dL (12.0-16.0); IMMATURE GRAN # 0.06 x10^3u/L (0.00-0.03); IMMATURE GRAN % 0.4 % (0.00-0.4); Lymphocytes % 26.4 % (24.0-44.0); Mean Cell Volume 79.3 fL (78-100); Mean Corpuscular Hemoglobin 24.8 pg (26-32); Mean Corpuscular Hgb Concent. 31.3 g/dL (32-36); Mean Platelet Volume 9.1 fL (7.5-11.0); Monocyte (Absolute #) 1.15 x10^3/uL (0.0-1.3); Monocytes % 8.2 % (0.0-12.0); NUCLEATED RBC # 0.06 x10^3u/L (0.00-0.01); NUCLEATED RBC % 0.4 % (0.00-0.1); Neutrophil % 60.9 % (36.0-66.0); Platelet Count 606 x10^3/uL (150-450); Red Cell Distribution Width 19.7 % (11.5-14.0)
[2023-10-05] MEDS ORDERED: Furosemide 100mg/10 ml Vial ONE (10:41)
[2023-10-05] MEDS: Furosemide 100mg/10 ml Vial IV ONE (10:42)
[2023-10-05] MEDS ORDERED: MORPHINE SULFATE 2 MG INJ ONE (10:42)
[2023-10-05] MEDS: MORPHINE SULFATE 2 MG INJ IV ONE (10:43)
[2023-10-05 11:11] LABS: ALBUMIN 3.4 g/dL (3.5-5.0); ANION GAP 14.6 MEQ/L (5-15); BILIRUBIN,TOTAL 1.1 mg/dL (0.2-1.3); Creatinine 1 0.86 mg/dL (0.52-1.04); EST GLOMERULAR FILTRATION RATE 83.8 ML/MIN; Potassium 4.3 mmol/L (3.5-5.1); TROPONIN 0.016 ng/mL (0.000-0.033); Total Protein 6.8 g/dL (6.3-8.2)
[2023-10-05 11:30] LABS: INFLUENZA A NEGATIVE (NEGATIVE); INFLUENZA B NEGATIVE (NEGATIVE); RESPIRATORY SYNCTIAL VIRUS NEGATIVE (NEGATIVE); SARS-CoV-2 Xpert Express NEGATIVE (NEGATIVE)
[2023-10-05] MEDS ORDERED: ROCEPHIN 1 GM / 100 ML NaCl 1 GM/100 ML IVPB IV ONE (12:50)
[2023-10-05] MEDS: ROCEPHIN 1 GM / 100 ML NaCl 1 GM/100 ML IVPB IV ONE (13:11)
[2023-10-05 15:10] VITALS: BP 125/95; PULSE 106; RESP 24
[2023-10-05 15:25] VITALS: O2SAT 94
--- NOTE | 2023-10-05 19:50 | XRAY ---
Indication: Short of breath. Comparison: September 30, 2023 Portable chest demonstrates reaccumulation moderate right effusion/atelectasis. Left lung remains clear. Heart remains enlarged.
== END 2023-10-05 15:23 | disposition short-term general hospital (02) ==
LOC: ED 09:56
DX: A41.9 Sepsis, unspecified organism (principal); J18.9 Pneumonia, unspecified organism; J91.8 Pleural effusion in other conditions classified elsewhere; I11.0 Hypertensive heart disease with heart failure; I50.9 Heart failure, unspecified; R06.02 Shortness of breath; R05.1 Acute cough; Z79.01 Long term (current) use of anticoagulants; Z79.899 Other long term (current) drug therapy
CPT/HCPCS: 0241U; 36415; 71045; 80053; 83605; 83880; 84145; 84484; 85025; 87040; 93005; 94640; 96374; 96375; 99285; J0696; J1940; J2270; A9270-GY